=== PATIENT | male | born 1965 | race Caucasian/White ===

== ENCOUNTER 2021-07-27 13:09 | Emergency (ER) | payer BC, SELFPAY ==
[2021-07-27 14:53] VITALS: BP 119/62; PULSE 74; RESP 18; TEMP 36.4; O2SAT 95; BMI 25.0
--- NOTE | 2021-07-27 15:25 | HMH.EDUTC ---
[facility] [place] Disposition Clinical Impression: Sinusitis Qualifiers: Sinusitis location: unspecified location Chronicity: acute Recurrence: non-recurrent Qualified Code(s): J01.90 - Acute sinusitis, unspecified Disposition: Home, Self-Care Condition on Discharge: Good Instructions: Sinusitis, DI for Sinusitis Additional Instructions: Drink plenty of fluids. Take tylenol or ibuprofen for pain or fever. Take the medications as directed. Follow up with your regular doctor. GO TO THE ER FOR ANY WORSENING SYMPTOMS Don't start the oral steroids until tomorrow, since you had the shot here today. Prescriptions: Amoxicillin/Potassium Clav [Augmentin 875-125 Tablet] 1 tab PO Q12H 10 Days #20 tab Transmission Status: Received by [facility] methylPREDNISolone [Medrol] 4 mg PO DIRECTED 6 Days #21 packet Transmission Status: Received by [facility] guaiFENesin [Mucinex 600mg tablet] 1 - 2 tab PO BIDP PRN #30 tab PRN Reason: Congestion Transmission Status: Received by [facility] Referrals: Provider,Referral, [Primary Care Provider] - Time of Disposition: 16:28 Medical Decision Making - Medical Records Medical records reviewed: No: I reviewed the patient's medical records. - Justin Inquiry Pt receiving controlled substance: No Vital Signs: 07/27/21 14:53 07/27/21 16:39 Temperature 97.6 F 97.6 F Temperature Source Temporal Artery Scan Pulse Rate 74 Pulse Rate [Left] 74 Respiratory Rate 18 18 Blood Pressure 119/62 Blood Pressure [Right Arm] 119/62 Blood Pressure Mean [Right Arm] 81 02 Sat by Pulse Oximetry 95 Orders (Tests/Meds): ED MEDICATIONS Discontinued Medications Generic Name Dose Route Start Last Admin Trade Name Freq PRN Reason Stop Dose Admin Ceftriaxone Sodium 1 gm 07/27/21 15:43 07/27/21 16:01 Ceftriaxone 1gm Vial IM 07/27/21 15:44 1 gm ONCE ONE Administration Lidocaine HCl 0 ml 07/27/21 15:43 07/27/21 16:00 Lidocaine 1% 5ml Pf Vial IM 07/27/21 15:44 2 ml ONCE ONE Administration Methylprednisolone Sodium Succinate 125 mg 07/27/21 15:43 07/27/21 16:01 Methylprednisolone Sod Succ 125mg Vial IM 07/27/21 15:44 125 mg ONCE ONE Administration [facility] [place] HPI - General Stated complaint: headache, upper respiratory Time Seen by Provider: 07/27/21 15:25 Mode of Arrival: Ambulatory Source of Information: Patient Limitations: No Limitations Description of Symptoms (Recalled from Triage Doc. by RN): pt c/o a VALENCIA, green mucous and sputum, dizziness, sinus pain/pressure, and R eye pain. x2 MONTHS. HEENT Symptoms (Recalled from RN notes): Yes Resp Symptoms (Recalled from RN notes): Yes Skin Symptoms (Recalled from RN notes): No MS Symptoms (Recalled from RN notes): No Functional Status (Recalled from RN notes): wnl - History of Present Illness Provider Complaint: He states that for the past 2 months he has had a sinus infection. He has took multiple otc medications with no relief. - Related Data Previous Rx's Medication Instructions Recorded wufcankkskraaoj-keimgyitmzpvgyh-EO 10 ml PO Q4-6H PRN #200 ml 07/30/19 2 mg-30 mg-10 mg/5 mL oral syrup fluticasone propionate 50 1 spray INTRANASAL DAILY #15.8 ml 07/30/19 mcg/actuation nasal spray,suspension Amoxicillin/Potassium Clav 1 tab PO Q12H 10 Days #20 tab 07/27/21 [Augmentin 875-125 Tablet] guaiFENesin [Mucinex 600mg tablet] 1 - 2 tab PO BIDP PRN #30 tab 07/27/21 methylPREDNISolone [Medrol] 4 mg PO DIRECTED 6 Days #21 07/27/21 packet Allergies Allergy/AdvReac Type Severity Reaction Status Date / Time codeine Allergy Verified 07/27/21 14:56 - Worker's Comp Is this a Worker's Comp case?: No [facility] History - Hepatitis A Screen Drug use history?: No High risk sexual behaviors?: No History of sexually transmitted infection?: No Currently employed?: No Childcare worker?: No Do you have indoor plumbing?: Yes Do you have electricity?:
[2021-07-27 16:39] VITALS: BP 119/62; PULSE 74; RESP 18; TEMP 36.4
== END 2021-07-27 16:40 | disposition home or self-care (01) ==
PROVIDERS: Emergency Provider Nurse Practitioner Family
DX: J01.90 Acute sinusitis, unspecified (principal)
CPT/HCPCS: 96372; 99202; G0463; J0696

== ENCOUNTER 2023-03-20 14:36 | Emergency (ER) | payer BC, SELFPAY ==
[2023-03-20 14:38] VITALS: BP 138/74; PULSE 91; RESP 17; TEMP 36.7; O2SAT 97; BMI 24.4
--- NOTE | 2023-03-20 14:58 | XR_ITS ---
PROCEDURE INFORMATION: Exam: XR Left Forearm Exam date and time: 03/20/2023 3:05 PM Age: 57 years old Clinical indication: Injury or trauma; Other: Metal in arm; Puncture; Arm, lower; Left TECHNIQUE: Imaging protocol: Radiologic exam of the left forearm. Views: 2 views. COMPARISON: No relevant prior studies available. FINDINGS: Bones/joints: No acute fracture or dislocation. Soft tissues: 2 x 4.5 mm metallic foreign body in soft tissues of the radial/volar aspect of the mid forearm. IMPRESSION: 1. 2 x 4.5 mm metallic foreign body in soft tissues of the radial/volar aspect of the mid forearm. 2. No acute fracture or dislocation.
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
[2023-03-20 16:11] VITALS: BP 138/74; PULSE 91; RESP 17; TEMP 36.7; O2SAT 97
== END 2023-03-20 16:11 | disposition home or self-care (01) ==
PROVIDERS: Emergency Provider Nurse Practitioner
DX: S50.852A Superficial foreign body of left forearm, initial encounter (principal); F17.210 Nicotine dependence, cigarettes, uncomplicated; W45.8XXA Other foreign body or object entering through skin, initial encounter
CPT/HCPCS: 73090; 87070; 87205; 99212; 99214; G0463

== ENCOUNTER 2024-07-11 10:53 | Emergency (ER) | payer OTHER, SELFPAY ==
[2024-07-11 10:56] VITALS: BP 135/82; PULSE 99; RESP 20; TEMP 36.7; O2SAT 97; BMI 24.4
--- NOTE | 2024-07-11 11:07 | XR_ITS ---
PROCEDURE INFORMATION: Exam: XR Left Ankle Exam date and time: 07/11/2024 11:15 AM Age: 59 years old Clinical indication: Difficulty in walking; Additional info: Inversion injury TECHNIQUE: Imaging protocol: Radiologic exam of the left ankle. Views: 3 or more views. COMPARISON: CR XR FOOT LT MIN 3V 07/11/2024 11:15 AM FINDINGS: Bones/joints: No acute fracture or dislocation. Ankle mortise is intact. Small plantar calcaneal enthesophyte. Soft tissues: Soft tissue edema about the ankle. IMPRESSION: No acute osseous abnormality.
--- NOTE | 2024-07-11 11:07 | XR_ITS ---
PROCEDURE INFORMATION: Exam: XR Left Foot Exam date and time: 07/11/2024 11:15 AM Age: 59 years old Clinical indication: Difficulty in walking; Additional info: Inversion injury TECHNIQUE: Imaging protocol: Radiologic exam of the left foot. Views: 3 or more views. COMPARISON: CR XR ANKLE LT MIN 3V 07/11/2024 11:15 AM FINDINGS: Bones/joints: No acute fracture or dislocation. Joint spaces preserved. Small plantar calcaneal enthesophyte. Soft tissues: Unremarkable. IMPRESSION: No acute osseous abnormality.
[2024-07-11] MEDS: ACETAMINOPHEN 500MG TAB 1000 MG PO (11:19)
[2024-07-11] MEDS: IBUPROFEN 600 MG TABLET PO (11:19)
[2024-07-11 11:30] VITALS: BP 130/87; PULSE 88; O2SAT 96
--- NOTE | 2024-07-11 11:37 | ED_ITS ---
Discharge Plan Disposition Patient Disposition: Home, Self-Care Chief Complaint: Extremity Injury, Lower Prescriptions Prescriptions: No Action zuxczstggqcoetn-wdwmxliaw-TX [Bromfed DM] 2-30-10 mg/5 mL syrup 10 ml PO Q4-6H PRN (Reason: cold symptoms) Qty: 200 0RF fluticasone propionate [Flonase Allergy Relief] 50 mcg/actuation spray,suspension 1 spray INTRANASAL DAILY Qty: 15.8 2RF Rx Instructions: administer into each nostril methylprednisolone 4 MG tablets,dose pack 4 mg PO DIRECTED 6 Days Qty: 21 0RF amoxicillin-pot clavulanate 1 EACH tablet 1 tab PO Q12H 10 Days Qty: 20 0RF guaifenesin 600 MG tablet extended release 12hr 1 - 2 tab PO BIDP PRN (Reason: Congestion) Qty: 30 0RF clindamycin HCl 300 mg capsule 300 mg PO TID 10 Days Qty: 30 0RF Referrals Follow up/Referrals: WM Martin Ramirez MD [Primary Care Provider] - See instructions Foster Doss DO [Staff Physician] - See instructions Activity Restrictions/Add. Instructions Additional Instructions/Restrictions: At this time it was felt you are safe to be discharged home. If new or worsening symptoms please do not hesitate to return the emergency department. Please call and schedule appoint with Dr. Doss as soon as you are able if your symptoms persist longer than 5 days. For pain please take Tylenol and ibuprofen as needed is okay to take them both at the same time, please bear weight as tolerated with crutches. Clinical Impressions Clinical Impression: Left ankle sprain, Acute foot pain Print Language Print Language: Nicaraguan Discharge ED Provider: Ady Machuca General Adult [facility] General Chief complaint: Extremity Injury, Lower Stated complaint: AO 07/09/24, inj left foot/ankle Time Seen by Provider: 07/11/24 10:59 Mode of Arrival: Family Vehicle Source of Information: Patient, Spouse and Medical Record Limitations: No Limitations Description of Symptoms (Recalled from ER Triage Doc. by RN): Pt c/o pain and tenderness to left lateral sole to left foot. States on Friday (07/09), the ground he was walking on gave way and he slid down about 1 foot and his foot edwina the ground hard. He denies striking his head or any neck injury. He does report to tweaking his low back in the fall. He did take Aleve last night. History of Present Illness HPI narrative: Patient is a 59-year-old male with no pertinent past medical history presents emergency department for traumatic injury to his left ankle. Patient inadvertently stepped into a small syncopal and fell over causing an inversion injury with significant pain to his left ankle and foot. No other traumatic injuries. No other acute complaints at this time. No anticoagulants. Related Data Previous Rx's ?Medication ?Instructions ?Recorded fzxgcuddagtuhwr-uwefdclsvhftobv-YL 10 ml PO Q4-6H PRN cold symptoms 07/30/19 2 mg-30 mg-10 mg/5 mL oral syrup #200 mL (Bromfed DM) fluticasone propionate 50 1 spray intranasal DAILY #15.8 mL 07/30/19 mcg/actuation nasal spray,suspension (Flonase Allergy Relief) amoxicillin 875 mg-potassium 1 tab PO Q12H 10 days #20 tabs 07/27/21 clavulanate 125 mg tablet guaifenesin 600 mg tablet, 1 - 2 tab PO BIDP PRN Congestion 07/27/21 extended release 12 hr #30 tabs methylprednisolone 4 mg tablets in 4 mg PO DIRECTED 6 days #21 07/27/21 a dose pack packets clindamycin HCl 300 mg capsule 300 mg PO TID 10 days #30 caps 03/20/23 Allergies Allergy/AdvReac Type Severity Reaction Status Date / Time codeine Allergy Verified 03/25/23 09:09 [facility] Disclaimer: The information contained in this section may have been updated after the patient was seen, as this information can be updated by other users. Social History Smoking Status: Current every day smoker alcohol intake: current alcohol intake frequency: holidays/special occasions only current occupational status: employed Travel in the last 8 weeks: None housing: house Have you lived/traveled outside [place] in past 30 days?: No Contact w/someone who lives/traveled outside US past 30 days?: No Exposure to someone with infectious disease in past 14 days?: No Do you have a fever (greater than 100.4 F or 38 C)?: No Have you tested positive for COVID-19: No Exposed to someone with COVID-19 in past 14 days?: No Do you have a sore throat?: No Do you have a cough?: No Do you have any weakness?: No Do you have any diarrhea?: No Are you experiencing any unusual bleeding?: No Do you have any muscle aches/pain?: No Do you have any abdominal pain?: No Are you experiencing loss of taste or smell?: No Other Medical History Have you received the Pneumonia Vaccine: No ROS Obtained: Yes Systems reviewed as appropriate & no additional complaints except as documented Physical Exam General General appearance: alert and in no apparent distress Head Head exam: atraumatic and normocephalic Eye Eye exam: Present PERRL ENT ENT exam: Present mucous membranes moist Neck Neck exam: Present normal inspection Chest Chest inspection: Present normal inspection and symmetric chest wall rise Respiratory Respiratory exam: Present normal lung sounds bilaterally; Absent respiratory distress Cardiovascular Cardiovascular exam: Present regular rate and normal rhythm Abdominal Exam Abdominal exam: Present soft; Absent tenderness Extremities Exam Extremities exam: Present other (Bruising and tenderness along the lateral left malleolus on the lateral left foot. Distally neurovascularly intact left foot capillary refill preserved in all digits of the left foot. Palpable dorsal pedal pulse left foot.) Neurological Exam Neurological exam: Present alert Psychiatric Psychiatric exam: Present normal affect Skin Skin exam: Present warm and dry Medical Decision Making Medical Records Screening: Per USPSTF and CDC recommendations, given the prevalence of disease in our region, it is our hospital?s policy to screen for HIV and viral Hepatitis for all patients aged 18 and over and those with ongoing risk factors. Justin Inquiry Pt receiving controlled substance: No Vital Signs: 07/11/24 10:56 Temperature 98.0 F Temperature Source Oral Pulse Rate [Right] 99 H Respiratory Rate 20 Blood Pressure [Right Arm] 135/82 Blood Pressure Mean [Right Arm] 99 Blood Pressure Source [Right Arm] Automatic Cuff 02 Sat by Pulse Oximetry 97 Oxygen Delivery Method Room Air Orders (Tests/Meds): ED MEDICATIONS Discontinued Medications Generic Name Dose Route Start Last Admin Trade Name Freq PRN Reason Stop Dose Admin Acetaminophen 1,000 mg 07/11/24 11:07 07/11/24 11:19 Acetaminophen 500mg Tab PO 07/11/24 11:08 1,000 mg ONCE ONE Administration Ibuprofen 600 mg 07/11/24 11:07 07/11/24 11:19 Ibuprofen 600 Mg Tablet PO 07/11/24 11:08 600 mg ONCE ONE Administration ORDERS Category Date Time Status Ankle XR - Left minimum 3 Views [XR ankle LT min 3V] Exams 07/11/24 11:07 Completed Stat Foot XR left minimum 3 views [XR foot LT min 3V] Stat Exams 07/11/24 11:07 Completed Medical Decision Narrative: In summary patient is a 59-year-old male past medical history described above who presents to the emergency department for evaluation inversion injury to his left foot. Patient is hemodynamically stable nontoxic-appearing upon arrival. Differential includes musculoskeletal strain, muscle tear, fracture, dislocation, among others. Workup will be limited to plain film of the left foot and ankle. Additional hematologic labs and imaging was considered however based on history and physical will be deferred. Initial inventions include Tylenol and ibuprofen. X-rays informally interpreted by me, no acute significantly displaced fracture. Formal read shows no acute abnormality. Given this patient will be given crutches with instructions for weightbearing as tolerated will follow-up on an outpatient basis with orthopedics. Critical Care Critical Care Time Critical Care Time: No
--- NOTE | 2024-07-11 11:42 | PC.NURSE ---
ROUNDED ON THE PT. THE PT VOICES THAT HE DOES NOT NEED ANYTHING AT THIS TIME. CALL LIGHT IS WITHIN REACH OF THE PT. GIRLFRIEND IS PRESENT AT THE BEDSIDE.
[2024-07-11 11:52] VITALS: BP 128/82; PULSE 88; RESP 18; TEMP 36.7; O2SAT 98
== END 2024-07-11 11:53 | disposition home or self-care (01) ==
PROVIDERS: Emergency Provider Emergency Medicine; PCP Family Medicine
DX: S93.402A Sprain of unspecified ligament of left ankle, initial encounter (principal); M79.672 Pain in left foot; M25.572 Pain in left ankle and joints of left foot; Z72.0 Tobacco use; W19.XXXA Unspecified fall, initial encounter; Y93.9 Activity, unspecified
CPT/HCPCS: 73610; 73630; 99283

== ENCOUNTER 2024-11-23 16:59 | Emergency (ER) | payer OTHER, SELFPAY ==
[2024-11-23 17:42] VITALS: BP 118/60; PULSE 79; RESP 20; TEMP 36.8; O2SAT 96; BMI 24.4
--- NOTE | 2024-11-23 17:45 | XR_ITS ---
PROCEDURE INFORMATION: Exam: XR Right Elbow Exam date and time: 11/23/2024 6:54 PM Age: 59 years old Clinical indication: Injury or trauma; Fall; Blunt trauma (contusions or hematomas); Elbow; Right TECHNIQUE: Imaging protocol: Radiologic exam of the right elbow. Views: 3 or more views. COMPARISON: CR XR ELBOW RT MIN 3V 11/23/2024 6:54 PM FINDINGS: Bones/joints: Normal. No acute fracture identified. Soft tissues: Normal. IMPRESSION: No acute findings.
--- NOTE | 2024-11-23 17:45 | CT_ITS ---
PROCEDURE INFORMATION: Exam: CT Lumbar Spine Without Contrast Exam date and time: 11/23/2024 6:51 PM Age: 59 years old Clinical indication: Injury or trauma; Fall; Blunt trauma (contusions or hematomas) TECHNIQUE: Imaging protocol: Computed tomography of the lumbar spine without contrast. Radiation optimization: All CT scans at this facility use at least one of these dose optimization techniques: automated exposure control; mA and/or kV adjustment per patient size (includes targeted exams where dose is matched to clinical indication); or iterative reconstruction. COMPARISON: CT LUMBAR SPINE WO CON 11/23/2024 6:51 PM FINDINGS: Bones/joints: Anterior upper right sacral ala fracture redemonstrated. No other acute fracture. Normal alignment. No significant disc bulge or herniation. No severe spinal canal stenosis. No significant neural foraminal narrowing. Soft tissues: Unremarkable. IMPRESSION: 1. Anterior superior right sacral ala fracture. 2. No other acute lumbar spine fracture.
--- NOTE | 2024-11-23 17:45 | CT_ITS ---
PROCEDURE INFORMATION: Exam: CT Thoracic Spine Without Contrast Exam date and time: 11/23/2024 6:46 PM Age: 59 years old Clinical indication: Injury or trauma; Fall; Blunt trauma (contusions or hematomas) TECHNIQUE: Imaging protocol: Computed tomography of the thoracic spine without contrast. Radiation optimization: All CT scans at this facility use at least one of these dose optimization techniques: automated exposure control; mA and/or kV adjustment per patient size (includes targeted exams where dose is matched to clinical indication); or iterative reconstruction. COMPARISON: CT CHEST WO CON 11/23/2024 6:49 PM FINDINGS: Bones/joints: No acute fracture. Normal alignment. No significant disc bulge or herniation. No severe spinal canal stenosis. Mild degenerative changes. Soft tissues: Unremarkable. Esophagus: Small hiatal hernia. Possible abnormal thickening of the distal esophagus just proximal to the hiatal hernia. Patulous mildly distended fluid-filled esophagus. IMPRESSION: 1. No acute fracture. Mild degenerative changes. 2. Small hiatal hernia. Associated potential abnormal thickening of the distal esophagus just proximal to the hiatal hernia. This may be due to esophagitis but other process including the possibility of tumor can not be completely excluded. Further assessment with nonemergent endoscopy should be considered. Associated patulous fluid distended esophagus may be due to reflux or dysmotility.
--- NOTE | 2024-11-23 17:45 | XR_ITS ---
PROCEDURE INFORMATION: Exam: XR Right Shoulder Exam date and time: 11/23/2024 6:54 PM Age: 59 years old Clinical indication: Injury or trauma; Fall; Blunt trauma (contusions or hematomas); Shoulder; Right TECHNIQUE: Imaging protocol: Radiologic exam of the right shoulder. Views: 2 or more views. COMPARISON: CT CHEST WO CON 11/23/2024 6:49 PM FINDINGS: Bones/joints: Normal. No acute fracture identified. Soft tissues: Normal. IMPRESSION: No acute findings.
--- NOTE | 2024-11-23 17:45 | XR_ITS ---
PROCEDURE INFORMATION: Exam: XR Right Femur Exam date and time: 11/23/2024 6:54 PM Age: 59 years old Clinical indication: Injury or trauma; Fall; Blunt trauma; Thigh or upper leg; Right; Additional info: Pain after fall TECHNIQUE: Imaging protocol: Radiologic exam of the right femur. Views: 2 views. COMPARISON: CT BONY PELVIS 11/23/2024 6:53 PM FINDINGS: Bones/joints: Unremarkable. No acute fracture. Degenerative changes of the right hip. Soft tissues: Unremarkable. IMPRESSION: No acute findings.
--- NOTE | 2024-11-23 17:45 | CT_ITS ---
PROCEDURE INFORMATION: Exam: CT Pelvis Without Contrast, Skeleton Exam date and time: 11/23/2024 6:53 PM Age: 59 years old Clinical indication: Injury or trauma; Fall; Blunt trauma (contusions or hematomas); Bilateral; Pelvic region TECHNIQUE: Imaging protocol: Computed tomography of the pelvis without contrast. Exam focused on the skeleton. Radiation optimization: All CT scans at this facility use at least one of these dose optimization techniques: automated exposure control; mA and/or kV adjustment per patient size (includes targeted exams where dose is matched to clinical indication); or iterative reconstruction. COMPARISON: CT LUMBAR SPINE WO CON 11/23/2024 6:51 PM FINDINGS: Bones/joints: Nondisplaced fracture of the anterior superior right sacral ala that may extend into the right 1st sacral foramina. Nondisplaced comminuted fracture of the proximal right superior pubic ramus and nondisplaced fracture of the distal superior pubic ramus. Nondisplaced fracture of the mid right inferior pubic ramus. No other fracture identified. Awyb-wt-pmweqlky degenerative changes of the hips shext-cqklwtl-ocvk-left. Soft tissues: Unremarkable. IMPRESSION: Fractures of the right sacrum and the right superior and inferior pubic rami.
--- OUTSIDE RECORDS SUMMARY | 2024-11-23 17:50 | XMS_ITS | Clinical Summary ---
Author Organization [facility] Address [address] [place] [address] Phone Care Team Providers Care [facility] [employer] [facility] [facility] Miller Name Role Phone Unavailable Primary Care Provider Unavailabl e Allergies Active Allergy Reactions Criticality Noted Date Comments Codeine 06/12/2014 Medications No known medications Active Problems No known active problems Medical History Medical History Date Comments Neck fracture (HCC) Social History Tobacco Use Types Packs/Day Years Used Date Smoking Tobacco: Every Day Cigarettes Tobacco Cessation:Ready to Q uit: Yes; Counseling Given: Yes Alcohol Use Standard Drinks/Week Comments Yes 0 (1 standard drink = 0.6 oz pur e alcohol) occ Sex and Gender Information Value Date Recorded Sex Assigned at Not on file Legal Sex Male 6:08 PM EST Gender Identity Not on file Sexual Orientation Not on file Obstetrics History Last Filed Vital Signs Vital Sign Reading Time Taken Comments Blood Pressure 127/82 06/21/2014 2:14 PM EST Pulse 92 06/21/2014 2:14 PM EST Temperature 36.8 C (98.3 F) 06/12/2014 6:19 PM EST Respiratory Rate 16 06/12/2014 6:19 PM EST Oxygen Saturation 99% 06/12/2014 6:19 PM EST Inhaled Oxygen Concentration - - Weight 79.4 kg (175 lb) 06/21/2014 2:14 PM EST Height 180.3 cm (5' 11 ) 06/21/2014 2:14 PM EST Body Mass Index 24.41 06/21/2014 2:14 PM EST Plan of Treatment Upcoming Encounters Date Type Department Care Team (Late st Contact Info) Description 12/08/2024 1:45 PM EDT Office Visit [facility] [id number] [address] Tolu Aviles MD [address] [facility] [address] [place] [id number] Health Maintenance Due Date Last Done Comments Annual Wellness Exam 1969 DTaP/TDaP/Td (1 - Tdap) 1985 Hepatitis B Vaccine (1 of 3 - 19+ 3-dose series) 1985 Cologuard 2011 Colon Cancer Screening 2011 Colonoscopy 2011 FIT 2011 Sigmoidoscopy 2011 Virtual Colonography 2011 Zoster (1 of 2) 2016 Pneumococcal Vaccine 50+ (2 of 2 - PCV) 12/20/2021 12/20/2020 COVID-19 Vaccine ( - 2023-2 5 season) 2024 Influenza Vaccine (Season Ended) 2025 Meningococcal B Vaccine Aged Out No l onger eligible based on patient's age to complete this topic Insurance MEDICAID [facility] MEDICAID [facility] [employer] [facility]
--- OUTSIDE RECORDS SUMMARY | 2024-11-23 17:50 | XMS_ITS | Continuity of Care Document ---
Author Organization [facility] Address [address] [place] [address] Assessment No assessment recorded. Plan of Treatment Reminders Order Date Submit Date Provider Last Modified By Organization Details Last Modified Time Details Appointments None recorded. Lab None recorded. Referral orthopedic spine surgeon referral 2024 025 [facility], [address] , [place], [address], 5 07:45:07 Procedures None recorded. Surgeries None recorded. Imaging MRI, cervical spine, w/o contrast 2024 025 [facility], [address], [address], [place], [address], 12:59:09 Medication Orders baclofen 5 mg tablet 2024 025 [facility] [facility], [address] [place], [address], 5 05:02:05 Patient TargetsNo targets recorded. Patient Instructions Encounter Date Encounter Id Patient Instructions Last Modified By Organization Details Last Modified Time 09/27/2024 [id number] Call with change s RTC or ED if symptoms change or worsen Keep next interval checkup Cont. chronic meds as prescribed Chronic conditions are stable Discussed natural and expected course of this diagnosis and need to alert me if symptoms do not follow expected course or if any worsens edeatley Not available 09/27/2024 16:16:44 Reason for Referral Orthopedic Spine Surgeon Ref erral for Degeneration of cervical intervertebral disc Referring Physician: Suzanne Chavez, Family Medicine, Encounter Date: 09/27/2024 Results Created Date Observation Date Name Description Value Unit Range Abnormal Flag Note LastModifiedBy Organization Detail LastModifiedTime 09/14/19 25 09/13/2024 CT, cervi cory spine , w/o contr ast No observ ation record ed. [email or web address] [facility] ([facility]) [address], [place], [address], 09/16/2024 09:55:22 10/13/19 25 10/12/2024 XR, tibia + fibul a, 2 view No observ ation record ed. [email or web address] [facility] [address], [place], [address], 10/13/2024 09:20:53 10/16/19 25 10/12/2024 MRI, cervi cory spine , w/o contr ast No observ ation record ed. [email or web address] [facility] [address], [place], [address], 10/18/2024 10:26:03 Result Notes None recorded. Problems Name Problem SNOMED Code Status Onset Date Resolution Date Notes Provider Name and Address Organization Details Recorded Time Low back pain 335424515 Active 2022 Suzanne Chavez PA-C [address], [place], [address] , [place] - [facility] 3 08:16:54 Gastroesophag eal reflux disease 726801500 Active [facility], [place] - [facility] 7 16:32:51 Neck pain 22991882 Active 2024 Suzanne Chavez PA-C [address], [place], [address] , [place] - [facility] 5 16:18:10 Degeneration of cervical intervertebra l disc 76453106 Active 2024 Suzanne Chavez PA-C [address], [place], [address] , [facility] - [facility] 5 16:02:25 Pain in left knee Active Leyla padron, [place] - [facility] 7 15:42:47 Problem Notes None recorded. Medical Equipment None Reported. Allergies Allergen ID Allergen Name Allergen Category Reaction Reaction Severity Criticality Documentation Date Start Date Code Code System Note Provider Name and Address Organization Details Recorded Time 69030 codeine phosphate medicatio n Not available Not available Not available 03/08/20162009 2672 RxNorm Not Available [facility] 6 10:07:36 17668 codeine sulfate medicatio n Not available Not available Not available 03/08/20162009 93901 RxNorm Not Available [facility] 6 10:07:37 Medications Name Sig Start Date Stop Date Status Note LastModified by Organization Details LastModified Time amoxicill in 500 mg capsule TAKE ONE CAPSULE BY MOUTH THREE TIMES DAILY -- FINISH ALL MEDICINE -- 09/13 completed Not Available Not Available Not Available methocarb yusra 500 mg tablet Take 1 tablet 4 times a day by oral route as needed for 7 days. 11/01 completed Not Available Not Available Not Available clindamyc in HCl 300 mg capsule TAKE ONE CAPSULE BY MOUTH THREE TIMES DAILY FOR 10 DAYS -- FINISH ALL MEDICINE -- 06/26 completed Not Available Not Available Not Available etodolac 200 mg capsule TAKE ONE (1) CAPSULE TWICE A DAY BY ORAL ROUTE NEEDED FOR 14 DAYS. active Not Available Not Available No t Available ibuprofen 800 mg tablet TAKE 1 TABLET BY MOUTH EVERY 6 HOURS NEEDED FOR PAIN 12/20 completed Not Available Not Available Not Available ofloxacin 0.3 % eye drops instill 1 drop into left eye by ophthalm ic route every 4 hours for 2 days then 1 drop four times daily for 5 days 11/14 completed ofloxaci n 0.3 % ophthalm ic drops;Re corded Status: Recorded on: 07/05/19 11 3:18PM;D iscontin ued Status: Disconti nued on: 11/15/19 11 2:03PM;U ser: vesth Not Available Not Available Not Available Avelox 400 mg tablet take 1 tablet (400 mg) by oral route once daily for 10 days 11/14 completed Avelox 400 mg oral tablet;R ecorded Status: Recorded on: 07/24/19 11 1:16PM;D iscontin ued Status: Disconti nued on: 11/15/19 11 2:03PM;U ser: woodst;E st. Completi on: 08/04/19 11 Not Available Not Available Not Available Levaquin 750 mg tablet take 1 tablet (750 mg) by oral route once daily for 5 days 07/24 completed Levaquin 750 mg oral tablet;c omment: medicaid ;Recorde d Status: Recorded on: 07/24/19 11 1:10PM;D iscontin ued Status: Disconti nued on: 07/24/19 11 1:16PM;U ser: woodst;E st. Completi on: 07/29/19 11 Not Available Not Available Not Available Zithromax Z-Jamari 250 mg tablet take 2 tablets (500 mg) by oral route once daily for 1 day then 1 tablet (250 mg) by oral route once daily for 4 days 01/09 completed Zithroma x Z-Jamari 250 mg oral tablet;P rescribe Status: Prescrib ed on: 06/07/19 15 12:20PM; Disconti nued Status: Disconti nued on: 01/10/20 15 12:59PM; User: mitul;Yesy t. Completi on: 06/12/19 15;Pharm acyVsanta ied: 06/07/19 15 12:20PM Not Available Not Available Not Available naproxen 250 mg tablet TAKE 1 TABLET BY MOUTH TWICE DAILY 12/20 completed Not Available Not Available Not Available Minocin 100 mg capsule take 1 capsule (100 mg) by oral route 2 times per day for 10 days 08/20 completed Minocin 100 mg oral capsule; Recorded Status: Recorded on: 06/08/19 13 5:08PM;D iscontin ued Status: Disconti nued on: 08/21/19 13 4:35PM;U ser: jenny; Est. Completi on: 06/18/19 13;Print ed: 06/08/19 13 Not Available Not Available Not Available sulfameth oxazole 800 mg-trimet hoprim 160 mg tablet TAKE ONE TABLET BY MOUTH EVERY TWELVE HOURS FOR 7 DAYS -- FINISH ALL MEDICINE -- 06/26 completed Not Available Not Available Not Available omeprazol e 40 mg capsule,d elayed release 1 po qd 03/31 completed Not Available Not Available Not Available tramadol 50 mg tablet take 1 tablet (50 mg) by oral route every 4-6 hours as needed for 10 days 03/12 completed tramadol 50 mg oral tablet;R ecorded Status: Recorded on: 11/15/19 11 3:57PM;D iscontin ued Status: Disconti nued on: 03/12/20 12 4:19PM;U ser: [email or web address]; Est. Completi on: 11/25/19 11;Indic ation: Pain - ([id number]) Not Available Not Available Not Available Nexium 20 mg capsule,d elayed release take 1 capsule (20 mg) by oral route once daily at least 1 hour before a meal swallowi ng whole. Do not crush or chew granules . for 30 days 03/25 completed Nexium 20 mg oral capsule, delayed release( /ALCON);P rescribe Status: Prescrib ed on: 09/10/19 14 3:26PM;D iscontin ued Status: Disconti nued on: 03/25/20 14 4:31PM;U ser: gored;Es t. Completi on: 12/09/19 14;Pharm acyVerif ied: 09/10/19 14 3:26PM Not Available Not Available Not Available meloxicam 7.5 mg tablet Take 1 tablet twice a day by oral route. 03/31 completed Not Available Not Available Not Available Tessalon Perles 100 mg capsule take 1 capsule (100 mg) by oral route 3 times per day for 10 days 01/09 completed Tessalon Perles 100 mg oral capsule; Prescrib e Status: Prescrib ed on: 06/07/19 15 12:20PM; Disconti nued Status: Disconti nued on: 01/10/20 15 12:59PM; User: grayn;Es t. Completi on: 06/17/19 15;Indic ation: Cough - ([id number]);Phar Trupti fied: 06/07/19 15 12:20PM Not Available Not Available Not Available methocarb yusra 750 mg tablet TAKE 1 TABLET BY MOUTH THREE TIMES DAILY NEEDED 09/27 completed Not Available Not Available Not Available cephalexi n 500 mg capsule TAKE 1 CAPSULE BY MOUTH EVERY 8 HOURS UNTIL GONE 12/12 completed Not Available Not Available Not Available Cipro 500 mg tablet take 1 tablet (500 mg) by oral route 2 times per day for 10 days 03/25 completed Cipro 500 mg oral tablet;P rescribe Status: Prescrib ed on: 09/10/19 14 3:26PM;D iscontin ued Status: Disconti nued on: 03/25/20 14 4:31PM;U ser: jarrod;Es t. Completi on: 09/20/19 14;Pharm acDeangelo ied: 09/10/19 14 3:26PM Not Available Not Available Not Available Tonja-D 12 Hour 60 mg-120 mg tablet,ex tended release take 1 tablet by oral route 2 times per day for 7 days 09/09 completed Tonja- D 12 Hour 60-120 mg oral tablet extended release 12 hr;Recor ded Status: Recorded on: 08/21/19 13 5:04PM;D iscontin ued Status: Disconti nued on: 09/10/19 14 3:09PM;U ser: jorge; Est. Completi on: 08/28/19 13;Print ed: 08/21/19 13 Not Available Not Available Not Available clobetaso l 0.05 % topical ointment APPLY A THIN LAYER TO THE AFFECTED AREA(S) BY TOPICAL ROUTE TWO (2) TIMES PER DAY 09/13 completed Not Available Not Available Not Available methylpre dnisolone 4 mg tablets in a dose pack TAKE ACCORDIN G TO PACKAGE INSTRUCT IONS --TAKE WITH FOOD-- -- FINISH ALL MEDICINE -- 09/13 completed Not Available Not Available Not Available cefdinir 300 mg capsule take 1 capsule (300 mg) by oral route every 12 hours for 10 days 02/03 completed cefdinir 300 mg oral capsule; Prescrib e Status: Prescrib ed on: 01/25/20 16 8:57AM;U ser: allisons ;Est. Dreai on: 02/04/20 16;Pharm acyVerif ied: 01/25/20 16 8:57AM Not Available Not Available Not Available Zovirax 5 % topical ointment apply to the affected area(s) by topical route every 3 hours 6 times per day for 7 days 07/05 completed Zovirax 5 % topical ointment ;Recorde d Status: Recorded on: 04/05/20 10 3:14PM;D iscontin ued Status: Disconti nued on: 07/05/19 11 8:17AM;U ser: gorclaudio;Yesy Zelaya on: 04/12/20 10;Print ed: 04/05/20 10 Not Available Not Available Not Available fluticaso ne propionat e 50 mcg/actua tion nasal spray,nasir pension inhale 1 spray (50 mcg) in each nostril by intranas al route once daily for 14 days 03/31 completed fluticas one 50 mcg/actu ation nasal spray,cody spension ;Prescri be Status: Prescrib ed on: 01/04/20 16 3:56PM;D iscontin ued Status: Disconti nued on: 01/25/20 16 8:32AM;U ser: allisons ;Est. Completi on: 01/18/20 16;Pharm acyVerif ied: 01/04/20 16 3:56PM Not Available Not Available Not Available naproxen 500 mg tablet TAKE 1 TABLET BY MOUTH TWICE DAILY 10/18 completed Not Available Not Available Not Available amoxicill in 875 mg-potass ium clavulana te 125 mg tablet take 1 tablet by oral route every 12 hours for 10 days 12/20 completed Not Available Not Available Not Available Ventolin HFA 90 mcg/actua tion aerosol inhaler inhale 1 puff (90 mcg) by inhalati on route every 6 hours as needed for 30 days 03/31 completed Not Available Not Available Not Available buprenorp giovani 8 mg-naloxo ne 2 mg sublingua l tablet DISSOLVE 2 TABLETS UNDER THE TONGUE EVERY DAY active Not Available Not Available No t Available lactulose 10 gram/15 mL oral solution take 15-30 ML BY MOUTH EVERY DAY NEEDED FOR constipa tion 09/13 completed Not Available Not Available Not Available metronida zole 1 % topical gel APPLY TO THE AFFECTED AREA(S) BY TOPICAL ROUTE ONCE DAILY ; RUB IN GENTLY AND COMPLETE LY 12/20 completed Not Available Not Available Not Available Zithromax one daily 08/20 completed zithroma x 250 mg.;Aristeo rded Status: Recorded on: 07/21/19 13 9:17PM;D iscontin ued Status: Disconti nued on: 08/21/19 13 4:35PM;U ser: jie Zelaya on: 07/30/19 13;Indic ation: sinus - (-5) Not Available Not Available Not Available tramadol one q 4 hrs prn pain 06/07 completed tramadol 50 mg.;Aristeo rded Status: Recorded on: 03/28/20 14 8:08PM;D iscontin ued Status: Disconti nued on: 06/07/19 15 11:41AM; User: jie EstJosselyn Completkennedy on: 04/02/20 14;Indic ation: pain - (-5) Not Available Not Available Not Available Keflex one tid 06/07 completed keflex 500 mg.;Aristeo rded Status: Recorded on: 03/28/20 14 8:08PM;D iscontin ued Status: Disconti nued on: 06/07/19 15 11:41AM; User: jie EstJosselyn Completkennedy on: 04/07/20 14;Indic ation: infectio n - (-5) Not Available Not Available Not Available Lomotil one q 4 hrs. prn 06/08 completed lomotil 25 mg.;Aristeo rded Status: Recorded on: 05/14/20 12 2:27PM;D iscontin ued Status: Disconti nued on: 06/08/19 13 4:10PM;U ser: jorge; Est. Completi on: 05/19/20 12;Indic ation: diarr - (-5) Not Available Not Available Not Available Minocin one bid 08/20 completed minocin 100 mg.;Aristeo rded Status: Recorded on: 06/08/19 13 8:28PM;D iscontin ued Status: Disconti nued on: 08/21/19 13 4:35PM;U ser: jorge; Est. Completi on: 06/18/19 13;Indic ation: sinus - (-5) Not Available Not Available Not Available promethaz ine one q 4 hrs prn nand v 06/08 completed phenerga n tAB 25 mg.;Aristeo rded Status: Recorded on: 05/14/20 12 2:27PM;D iscontin ued Status: Disconti nued on: 06/08/19 13 4:10PM;U ser: jorge; Est. Completi on: 05/19/20 12;Indic ation: neasua - (-5) Not Available Not Available Not Available Parafon Forte DSC one qid 09/09 completed Parafon dsc 500 mg.;Aristeo rded Status: Recorded on: 09/09/19 13 9:50PM;D iscontin ued Status: Disconti nued on: 09/10/19 14 3:09PM;U ser: jorge; Est. Completi on: 09/16/19 13;Indic ation: back - (-5) Not Available Not Available Not Available Mobic one bid 09/09 completed mobic 7.5 mg;Recor ded Status: Recorded on: 09/09/19 13 9:50PM;D iscontin ued Status: Disconti nued on: 09/10/19 14 3:09PM;U ser: jorge; Est. Completi on: 09/19/19 13;Indic ation: pain - (-5) Not Available Not Available Not Available Ultracet one q 4 hrs prn pain 08/20 completed ultracet 37.5 mg;Recor ded Status: Recorded on: 06/08/19 13 8:28PM;D iscontin ued Status: Disconti nued on: 08/21/19 13 4:35PM;U ser: jorge; Est. Completi on: 06/13/19 13;Indic ation: h/a - (-5) Not Available Not Available Not Available Doxycycli ne one bid 06/08 completed doxycycl ine 100 mg.;Aristeo rded Status: Recorded on: 03/12/20 12 4:55PM;D iscontin ued Status: Disconti nued on: 06/08/19 13 4:10PM;U ser: jorge; Est. Completi on: 03/22/20 12;Indic ation: uri - (-5) Not Available Not Available Not Available Lodrane 24 D 12 mg-90 mg capsule,e xtended release take 1-2 capsule( s) by oral route once daily 11/14 completed Lodrane 24 D 12-90 mg oral capsule, extended release 24hr;Rec orded Status: Recorded on: 07/05/19 11 3:46PM;D iscontin ued Status: Disconti nued on: 11/15/19 11 2:03PM;U ser: itzel Est. Completi on: 07/15/19 11 Not Available Not Available Not Available Tonja-D one bid 08/20 completed allerga d 12 hr.;Aristeo rded Status: Recorded on: 07/21/19 13 9:17PM;D iscontin ued Status: Disconti nued on: 08/21/19 13 4:35PM;U ser: jorge; Est. Completi on: 08/01/19 13;Indic ation: sinus - (-5) Not Available Not Available Not Available baclofen 5 mg tablet Take 1 tablet twice a day by oral route as needed for 10 days. 10/14 completed Not Available Not Available Not Available Vitals Date Recorded Respiratory rate Body weight Body temperature Heart rate Oxygen saturation Oxygen saturation in Arterial blood by Pulse oximetry Systolic blood pressure Diastolic blood pressure Provider Name and Address Organization Details Last Updated DateTime 14 /min 92798.1 5 g 98.2 [degF] 86 /min 98 % 98 % 118 mm[Hg] 84 mm[Hg] Susan Marte [place] - [facility] 5 15:29:34 Social History Question Answer Notes LastModified by Organizat ion Details LastModified Time Tobacco Smoking Status Current Every Day Smoker Nacho padron [place] - [facility] 03/28/2016 08:49:15 Able To Swim? Yes Information not available 08/21/2016 Do You Have An Advance Directive? No Information n ot available 08/21/2016 Are You Blind Or Do You Have Difficulty Seeing? No Information n ot available 08/21/2016 What Is Your Level Of Caffeine Consumption? Moderate Information not available 08/21/2016 In The 14 Days Before Symptom Onset, Have You Had Close Contact With A Laboratory-confirm ed COVID-19 While That Case Was Ill? No [email or web address] Information n ot available 12/20/2022 In The 14 Days Before Symptom Onset, Have You Had Close Contact With A Person Who Is Under Investigation For COVID-19 While That Person Was Ill? No [email or web address] Information not available 12/20/2022 Have You Been To An Area Known To Be High Risk For COVID-19? No [email or web address] Information not available 12/20/2022 Are You Deaf Or Do You Have Serious Difficulty Hearing? No Information not available 08/21/2016 What Type Of Diet Are You Following? REGULAR Information n ot available 08/21/2016 Have You Processed Blood Or Body Fluids From An Ebola Virus Disease Patient Without Appropriate PPE? No [email or web address] Information not available 12/20/2022 Do You Reside In Or Have You Traveled To An Area Where Ebola Virus Transmission Is Active? No Information not available 12/20/2022 Swimming/diving Yes Informati on not available 08/21/2016 Hard Of Hearing Or Deaf In One Or Both Ears? No Information not available 08/21/2016 Have You Recently Or Are You Planning To Travel To An Area With Zika Virus? No [email or web address] Information not available 12/20/2022 Legally Blind In One Or Both Eyes? No Information no t available 08/21/2016 Live Alone Or With Others? With Others Information not available 08/21/2016 What Was The Date Of Your Most Recent Tobacco Screening? 09/27/2024 [email or web address] Information not available 09/27/2024 How Many Children Do You Have? 1 Information not available 08/21/2016 What Is Your Current Pack Years? 30ormorepacky ears [email or web address] Information not available 12/20/2022 What Is Your Relationship Status? Single Information not available 08/21/2016 Seat Belts Used Routinely Yes Information not available 08/21/2016 Smoke Alarm In Home Yes Information not available 08/21/2016 At What Age Did You Start Smoking Tobacco? 18 [email or web address] Information not available 12/20/2022 Are You Passively Exposed To Smoke? Yes Information no t available 08/21/2016 How Much Tobacco Do You Smoke? 1 PPD [email or web address] Information not available 03/28/2016 General Stress Level High Information not available 08/21/2016 Has Tobacco Cessation Counseling Been Provided? Yes [email or web address] Information not available 12/20/2022 On What Date Was Tobacco Cessation Counseling Provided? 09/27/2024 [email or web address] Information not available 09/27/2024 How Many Years Have You Smoked Tobacco? 30 [email or web address] Information not available 12/20/2022 Do You Have Difficulty Walking Or Climbing Stairs? No Information not available 08/21/2016 Sex: Male Functional Status Question Answer Note LastModified by Organizat ion Details LastModified Time How many times per week do you consume alcohol? Less than 1 time per week [email or web address] Information not available 12/20/2022 Do you use any illicit or recreational drugs? No [email or web address] Information not available 12/20/2022 Do you or have you ever used any other forms of tobacco or nicotine? No [email or web address] Information not available 12/20/2022 What is your level of alcohol consumption? Moderate Information not available 08/21/2016 Are you currently employed? No Information not available 08/21/2016 Are you able to walk? [email or web address] Information not available 08/21/2016 Do you have difficulty doing errands alone? No Information not available 08/21/2016 Are you able to care for yourself? Yes Information not available 08/21/2016 Do you have difficulty dressing or bathing? No Information not available 08/21/2016 What is your exercise level? Moderate Information not available 08/21/2016 Mental Status Question Answer Note LastModified by Organization D etails LastModified Time Do you have difficulty concentrating, remembering or making decisions? No Information no t available 08/21/2016 Family History Relationship Description Onset Age of this Age Resolved Age Notes LastModified by Organization Details LastModified Time Maternal Grandmother Family history of malignant neoplasm Not available 2016 16:33:29 Paternal Grandmother Family history of malignant neoplasm Not available 2016 16:33:29 Maternal Grandfather Family history of malignant neoplasm Not available 2016 16:33:29 Medical History Condition Response Pancreatitis N Coronary Artery Disease N Other N Gout N Atrial Fibrillation N congenital heart disease N Blood Diseases N Kidney Stones N Hyperthyroidism N Blood Transfusion N Rheumatoid arthritis N Erectile Dysfunction N amputation N Colonoscopy N Skin Lesions N COPD N Depression N Pneumonia N Incontinence N Murmur N Edema N Alzheimer's Disease N Migraine Headaches N Tobacco Abuse N Anxiety Disorder N Hemorrhoids N Muscle, Joint, or Bone Problems N Obesity N Vision or Eye Problems N Arthritis N Restless Leg Syndrome N Polyps N Infertility N Mental Disorder N Carpal Tunnel N Acid Reflux (GERD) Y Cancer N Varicosities N Stroke N Tendonitis N Crohn's Disease N Hypercholesterolemia N Skin Cancer N Headaches N Fibromyalgia N Anal Fissure N Irritable Bowel Syndrome N Kidney Disease N Heart Problems N Ear or Hearing Problems N Hospitalizations N Gallstones N Kidney or Bladder Problems N Goiter N Acne N Skin Problems N Eating Disorder N Nguyen's Esophagus N Hypertriglyceridemia N MRSA exposure N Constipation N Embolism N Vitamin B12 Deficiency N Deviated Septum N Tuberculosis N AIDS/HIV N Myocardial Infarction N Asthma N Mitral Valve Disorders N Vertigo N Hepatitis N Thyroid Cancer N Neuropathy N Pulmonary Embolism N History of DVT N Herniated Disc N Chronic Ear Infections N Chicken Pox N Autism Spectrum Disorder (ASD) N Von Willebrands Disease N Thrombophilias N Breast Cancer N Hernia N Plantar Fasciitis N Hospital Admission Other Than N Lung Disease N Hypothyroidism N Defects or Inherited Disease N Developmental or Behavioral Disorders N Breast Problem N Difficulty Swallowing N Ovarian Cyst N Anesthesia Complications N Testosterone Deficiency N Meniere's disease N Head Injury/Concussion N Interstitial Cystitis N Congenital Anomalies N Hypoglycemia N Blood clot N Vitamin D Deficiency N Cellulitis N Endometriosis N Fracture N Bladder or Kidney Problems N Liver Disease N Panic Disorder N Schizophrenia N Concussion N Spina Bifida N Allergies/Hayfever N Osteoarthritis N Parkinson's Disease N Disc Protrusion N STI N Esophagitis N Angina N Thyroid Problems N GI Problems N ADD/ADHD N Anemia N Multiple Sclerosis N Abnormal PAP N Lumbago N Mental Illness N Psychiatric Illness N Diabetes N Ovarian Cancer N Bedwetting N Degenerative Disc Disease N Seizures/Epilepsy N Congestive Heart Failure (CHF) N Hyperlipidemia N Syncope N Insomnia N Eczema N Abuse/Domestic Violence N Attention Deficient Disorder N Diverticulitis N Dementia N Ulcerative colitis N Cerebrovascular Disease N Depression N Guillain-[place] N Sleep Apnea N Aneurysm N Bronchitis N Heart Disease N Suicidal Ideation N Pre-Eclampsia N Hypertension N Osteoporosis N Immunizations Vaccine Type Date Status Note Provider Nam e and Address Organization Details Recorded Time pneumococcal polysaccharide PPV23 completed Billie Reina [facility] [place] [facility] 12/20/2020 17:05:38 Past Encounters Encounter ID Performer Location Encounter Start Date Encounter Closed Date Diagnosis/Indication Diagnosis SNOMED-CT Code Diagnosis ICD10 Code Diagnosis Note [id number] TAYLER Morrow [address] [address] 09/13/2024 15:50:47 09/13/2024 16:24:45 Neck pain 64578853 M54.[address] or stat outpatient at ER. Recommend that pt go to ER for further evaluation and r/o c spine injury. Pt agreed. Pt refused ambulance transport, I discussed calling to get him in a brace and transport from [facility] but pt refused and his would drive him. Called and gave report to ER, He was going to go to [facility] [id number] TAYLER Morrow [facility] [address] [place] [address] 09/27/2024 15:18:04 09/27/2024 16:12:19 Neck pain 74352420 M54.2 on goingwill try different muscle relaxer, cont naproxen Degenerati on of cervical intervertebral disc 12212915 M50.30 -Noted on CT Health Concerns Section Related Observation LastModified by Organization Detai ls LastModified Time None Recorded Concern Status LastModified by Organization Details LastModified

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
--- OUTSIDE RECORDS SUMMARY | 2024-11-23 17:50 | XMS_ITS | Data Portability ---
Author Organization [facility] Address [address] [place] [address] Assessment No assessment recorded. Plan of Treatment Reminders Order Date Submit Date Provider Last Modified By Organization Details Last Modified Time Details Appointments None recorded. Lab vitamin D, 25-hydroxy , total, serum 2023 024 [facility], [address] [place], [address], 4 14:12:43 TSH + free T4, serum 2023 024 [facility], [address] [place], [address], 4 14:12:40 rf (rheumatoi d factor), serum 2023 024 CHANDU [facility], [address], [address], [place], [address], 4 14:12:42 roz-ba rr virus (ebv) IgG + IgM panel, serum 2023 024 [facility]U [facility], [address], [address], [place], [address], 4 14:12:42 ROOSEVELT (antinucle ar antibodies ) screen, serum 2023 024 [facility], [address], [address], [place], [address], 4 14:12:45 sjogren antibody panel (ssa, ssb, ro, la), serum 2023 024 [facility]U [facility], [address], [address], [place], [address], 4 14:12:41 ESR (erythrocy te sedimentat ion rate), blood 2023 024 CH[facility]U [facility], [address], [address], [place], [address], 4 14:12:46 hepatic function panel, serum 2023 024 [facility], [address], [address], [place], [address], 4 14:12:40 uric acid, serum or plasma 2023 024 [facility], [address], [address], [place], [address], 4 14:12:45 ASO (antistrep tolysin O) Ab, quantitati ve, serum 2023 024 [facility], [address], [address], [place], [address], 4 14:12:46 C reactive protein, QN, serum or plasma 2023 024 [facility]U [facility], [address], [address], [place], [address], 4 14:12:47 ccp (cyclic citrullina davon peptide) iga+igg, serum 2023 024 [facility], [address], [address], [place], [address], 4 14:12:44 actin smooth muscle IgG Ab, quant, serum 2023 024 [facility], [address], [address], [place], [address], 4 14:12:43 dsDNA Ab, serum 2023 024 [facility], [address], [address], [place], [address], 4 14:12:44 HbA1c (hemoglobi n A1c), blood 2023 024 [facility], [address] [place] [address], [address], 4 08:22:07 vitamin B12 + folate, serum or blood 2023 024 [facility], [address] [place] [address], [address], 4 08:22:06 CBC w/ auto diff 2023 024 [facility], [address] [place] [address], [address], 4 08:22:05 glucose, fingerstic k, blood 2023 024 [facility], [address] [facility], [place], [address], 4 16:29:01 CMP, serum or plasma [address], [address], 4 08:22:06 inflammati on panel, serum or plasma [address], [address], 4 08:22:07 Referral orthopedic spine surgeon referral 2024 025 [email or web address], [address], [place], [address], 5 07:45:07 general surgeon referral 2023 024 [email or web address] John Tai MD, [address] [facility] , [address], [place], [address], 4 08:02:23 ophthalmol ogist referral 2023 024 lee ann Linares MD, [address] [place], [address], 4 10:29:16 orthopedic surgeon referral 2022 023 [email or web address], [address], [place], [address], 4 09:22:14 dermatolog ist referral [address] [facility] [place], [address], [address], [place], [address], 3 11:24:56 Procedures None recorded. Surgeries None recorded. Imaging MRI, cervical spine, w/o contrast 2024 025 [facility], [address] [facility], [address], [place], [address], 5 12:59:09 XR, chest, 2 view 2023 024 [facility], [address] [place] [address] , [place], [address], 4 08:16:16 XR, ribs, unilateral - right 2022 023 CHANDU [facility] ([facility]), [address], [place], [address], 3 13:49:32 XR, knee, 3 view 2022 023 CHANDU Not available 3 13:49:45 XR, thoracic spine, 2 view 2022 023 [facility] [address] [place] [address], [place], [address], 3 13:49:38 Medication Orders baclofen 5 mg tablet [address], [address], 5 05:02:05 clobetasol 0.05 % topical ointment 2023 [email or web address], [address], 5 16:07:06 baclofen 5 mg tablet 2022 023 [facility], [address] [place] [address], [address], 5 05:02:05 etodolac 200 mg capsule 2022 [email or web address], [address], 5 10:25:32 Patient TargetsNo targets recorded. Patient Instructions Encounter Date Encounter Id Patient Instructions Last Modified By Organization Details Last Modified Time 12/20/2022 [id number] healthy upper back: exercises Not available 12/20/2022 11:03:24 skin lesions: care instructions Not available 12/20/2022 11:03:24 CALL W CHANGES RTC OR ED IF SYMPTOMS CHANGE OR WORSEN KEEP NEXT INTERVAL CHECKUP Not available 12/20/2022 11:02:00 06/26/2023 [id number] CALL W CHANGES RTC OR ED IF SYMPTOMS CHANGE OR WORSEN KEEP NEXT INTERVAL CHECKUP DISCUSSED NATURAL AND EXPECTED COURSE OF THIS DIAGNOSIS AND NEED TO ALERT ME IF SYMPTOMS DO NOT FOLLOW EXPECTED COURSE, OR IF ANY WORSEN. [email or web address] Not available 06/26/2023 16:25:00 fu w eb, ed or a a in one week to review results. consider hep c and hiv workup. consider hyperalgesia of opiates. auto inflammatory issues remain in the differential wdenham Not available 06/26/2023 16:30:38 07/14/2023 [id number] CALL W CHANGES RTC OR ED IF SYMPTOMS CHANGE OR WORSEN KEEP NEXT INTERVAL CHECKUP CONT CHRONIC MEDS PERSCRIBED CHRONIC ISSUES ARE STABLE DISCUSSED NATURAL AND EXPECTED COURSE OF THIS DIAGNOSIS AND NEED TO ALERT ME IF SYMPTOMS DO NOT FOLLOW EXPECTED COURSE, OR IF ANY WORSEN follow up after labs are revd. [email or web address] Not available 07/14/2023 15:31:47 09/13/2024 [id number] Call with change s RTC or ED if symptoms change or worsen Keep next interval checkup Cont. chronic meds as prescribed Chronic conditions are stable Discussed natural and expected course of this diagnosis and need to alert me if symptoms do not follow expected course or if any worsens edeatley Not available 09/13/2024 16:35:53 09/27/2024 [id number] Call with change s RTC or ED if symptoms change or worsen Keep next interval checkup Cont. 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 Referring Physician: uSzanne Daugherty [facility], Encounter Date: 12/20/2022 Orthopedic Surgeon Referral for Pain of left knee joint Referring Physician: Suzanne Daugherty [facility], Encounter Date: 12/20/2022 Warehouse Inventory Clerk Referral for Disorder of vision Referring Physician: [facility], Encounter Date: 06/26/2023 General Surgeon Referral for Skin lesion Referring Physician: Iain Momin [facility], Encounter Date: 07/14/2023 Orthopedic Spine Surgeon Ref erral for Degeneration of cervical intervertebral disc Referring Physician: Suzanne Chavez [facility], Encounter Date: 09/27/2024 Results Created Date Observation Date Name Description Value Unit Range Abnormal Flag Note LastModifiedBy Organization Detail LastModifiedTime 06/26/19 24 06/27/2023 CBC WITH DIFFE RENTI AL/PL ATELE T WBC 8.7 x10e3 /uL 3.4-10 .8 Not Available [facility] ([facility]) [address] [facility], [place], [address], 06/27/2023 08:22:05 06/26/19 24 06/27/2023 CBC WITH DIFFE RENTI AL/PL ATELE T RBC 4.79 x10e6 /uL 4.14-5 .80 Not Available [facility] ([facility]) [address] [facility], [place], [address], 06/27/2023 08:22:05 06/26/19 24 06/27/2023 CBC WITH DIFFE RENTI AL/PL ATELE T hemoglobin 13.3 g/dL 13.0-1 7.7 Not Available [facility] ([facility]) [address] [facility], [place], [address], 06/27/2023 08:22:05 06/26/19 24 06/27/2023 CBC WITH DIFFE RENTI AL/PL ATELE T hematocrit 39.4 % 37.5-5 1.0 Not Available [facility] ([facility]) [address] [facility], [place], [address], 06/27/2023 08:22:05 06/26/19 24 06/27/2023 CBC WITH DIFFE RENTI AL/PL ATELE T MCV 82 fL 79-97 Not Available [facility] ([facility]) [address] [place], [address], 06/27/2023 08:22:05 06/26/19 24 06/27/2023 CBC WITH DIFFE RENTI AL/PL ATELE T MCH 27.8 pg 26.6-3 3.0 Not Available [facility] ([facility]) [address] [place], [address], 06/27/2023 08:22:05 06/26/19 24 06/27/2023 CBC WITH DIFFE RENTI AL/PL ATELE T MCHC 33.8 g/dL 31.5-3 5.7 Not Available [facility] ([facility]) [address] [facility], [place], [address], 06/27/2023 08:22:05 06/26/19 24 06/27/2023 CBC WITH DIFFE RENTI AL/PL ATELE T RDW 13.4 % 11.6-1 5.4 Not Available [facility] ([facility]) [address] [facility], [place], [address], 06/27/2023 08:22:05 06/26/19 24 06/27/2023 CBC WITH DIFFE RENTI AL/PL ATELE T platelets 283 x10e3 /uL 150-45 0 Not Available [facility] ([facility]) [address] [facility], [place], [address], 06/27/2023 08:22:05 06/26/19 24 06/27/2023 CBC WITH DIFFE RENTI AL/PL ATELE T neutrophils 72 % not estab. Not Available [facility] ([facility]) [address] [facility], [place], [address], 06/27/2023 08:22:05 06/26/19 24 06/27/2023 CBC WITH DIFFE RENTI AL/PL ATELE T lymphs 22 % not estab. Not Available [facility] ([facility]) [address] [facility], [place], [address], 06/27/2023 08:22:05 06/26/19 24 06/27/2023 CBC WITH DIFFE RENTI AL/PL ATELE T monocytes 4 % not estab. Not Available [facility] ([facility]) [address] [facility], [place], [address], 06/27/2023 08:22:05 06/26/19 24 06/27/2023 CBC WITH DIFFE RENTI AL/PL ATELE T eos 2 % not estab. Not Available [facility] ([facility]) [address] [place], [address], 06/27/2023 08:22:05 06/26/19 24 06/27/2023 CBC WITH DIFFE RENTI AL/PL ATELE T basos 0 % not estab. Not Available [facility] ([facility]) [address] [facility], [place], [address], 06/27/2023 08:22:05 06/26/19 24 06/27/2023 CBC WITH DIFFE RENTI AL/PL ATELE T immature cells PICKER PACKER Not Available [facility] ([facility]) [address] [place], [address], 06/27/2023 08:22:05 06/26/19 24 06/27/2023 CBC WITH DIFFE RENTI AL/PL ATELE T neutrophils (absolute) 6.2 x10e3 /uL 1.4-7. 0 Not Available [facility] ([facility]) [address] [place], [address], 06/27/2023 08:22:05 06/26/19 24 06/27/2023 CBC WITH DIFFE RENTI AL/PL ATELE T lymphs (absolute) 1.9 x10e3 /uL 0.7-3. 1 Not Available [facility] ([facility]) [address] [place], [address], 06/27/2023 08:22:05 06/26/19 24 06/27/2023 CBC WITH DIFFE RENTI AL/PL ATELE T monocytes(ab solute) 0.4 x10e3 /uL 0.1-0. 9 Not Available [facility] ([facility]) [address] [place], [address], 06/27/2023 08:22:05 06/26/19 24 06/27/2023 CBC WITH DIFFE RENTI AL/PL ATELE T eos (absolute) 0.2 x10e3 /uL 0.0-0. 4 Not Available [facility] ([facility]) [address] [facility], [place], [address], 06/27/2023 08:22:05 06/26/19 24 06/27/2023 CBC WITH DIFFE RENTI AL/PL ATELE T baso (absolute) 0.0 x10e3 /uL 0.0-0. 2 Not Available [facility] ([facility]) [address] [facility], [place], [address], 06/27/2023 08:22:05 06/26/19 24 06/27/2023 CBC WITH DIFFE RENTI AL/PL ATELE T immature granulocytes 0 % not estab. Not Available [facility] ([facility]) [address] [facility], [place], [address], 06/27/2023 08:22:05 06/26/19 24 06/27/2023 CBC WITH DIFFE RENTI AL/PL ATELE T immature grans (abs) 0.0 x10e3 /uL 0.0-0. 1 Not Available [facility] ([facility]) [address] [facility], [place], [address], 06/27/2023 08:22:05 06/26/19 24 06/27/2023 CBC WITH DIFFE RENTI AL/PL ATELE T NRBC PICKER PACKER Not Available [facility] ([facility]) [address] [facility], [place], [address], 06/27/2023 08:22:05 06/26/19 24 06/27/2023 CBC WITH DIFFE RENTI AL/PL ATELE T hematology comments: PICKER PACKER Not Available [facility] ([facility]) [address] [facility], [place], [address], 06/27/2023 08:22:05 06/26/19 24 06/27/2023 COMP. METAB OLIC PANEL (14) glucose 107 mg/dL 70-99 above high normal Not Available [facility] ([facility]) [address] [place], [address], 06/27/2023 08:22:05 06/26/19 24 06/27/2023 COMP. METAB OLIC PANEL (14) BUN 13 mg/dL 6-24 Not Available [facility] ([facility]) [address] [place], [address], 06/27/2023 08:22:05 06/26/19 24 06/27/2023 COMP. METAB OLIC PANEL (14) creatinine 0.83 mg/dL 0.76-1 .27 Not Available [facility] ([facility]) [address] [facility] [place], [address], 06/27/2023 08:22:05 06/26/19 24 06/27/2023 COMP. METAB OLIC PANEL (14) eGFR 103 mL/mi n/1.7 3 >59 Not Available [facility] ([facility]) [address] [place], [address], 06/27/2023 08:22:05 06/26/19 24 06/27/2023 COMP. METAB OLIC PANEL (14) BUN/creatini ne ratio 16 9-20 Not Available [facility] ([facility]) [address] [place], [address], 06/27/2023 08:22:05 06/26/19 24 06/27/2023 COMP. METAB OLIC PANEL (14) sodium 139 mmol/ L 134-14 4 Not Available [facility] ([facility]) [address] [place], [address], 06/27/2023 08:22:05 06/26/19 24 06/27/2023 COMP. METAB OLIC PANEL (14) potassium 4.4 mmol/ L 3.5-5. 2 Not Available [facility] ([facility]) [address] [place], [address], 06/27/2023 08:22:05 06/26/19 24 06/27/2023 COMP. METAB OLIC PANEL (14) chloride 104 mmol/ L 96-106 Not Available [facility] ([facility]) [address] [place], [address], 06/27/2023 08:22:05 06/26/19 24 06/27/2023 COMP. METAB OLIC PANEL (14) carbon dioxide, total 21 mmol/ L 20-29 Not Available [facility] ([facility]) [address] [place], [address], 06/27/2023 08:22:05 06/26/19 24 06/27/2023 COMP. METAB OLIC PANEL (14) calcium 9.3 mg/dL 8.7-10 .2 Not Available [facility] ([facility]) [address] [place], [address], 06/27/2023 08:22:05 06/26/19 24 06/27/2023 COMP. METAB OLIC PANEL (14) protein, total 6.3 g/dL 6.0-8. 5 Not Available [facility] ([facility]) [address] [place], [address], 06/27/2023 08:22:05 06/26/19 24 06/27/2023 COMP. METAB OLIC PANEL (14) albumin 4.3 g/dL 3.8-4. 9 Not Available [facility] ([facility]) [address] [place], [address], 06/27/2023 08:22:05 06/26/19 24 06/27/2023 COMP. METAB OLIC PANEL (14) globulin, total 2.0 g/dL 1.5-4. 5 Not Available [facility] ([facility]) [address] [place], [address], 06/27/2023 08:22:05 06/26/19 24 06/27/2023 COMP. METAB OLIC PANEL (14) A/G ratio 2.2 1.2-2. 2 Not Available [facility] ([facility]) [address] [facility], [place], [address], 06/27/2023 08:22:05 06/26/19 24 06/27/2023 COMP. METAB OLIC PANEL (14) bilirubin, total <0.2 mg/dL 0.0-1. 2 Not Available [facility] ([facility]) [address] [facility] [place], [address], 06/27/2023 08:22:05 06/26/19 24 06/27/2023 COMP. METAB OLIC PANEL (14) alkaline phosphatase 92 IU/L 44-121 Not Available [facility] ([facility]) [address] [facility], [place], [address], 06/27/2023 08:22:05 06/26/19 24 06/27/2023 COMP. METAB OLIC PANEL (14) AST (SGOT) 16 IU/L 0-40 Not Available [facility] ([facility]) [address] [facility], [place], [address], 06/27/2023 08:22:05 06/26/19 24 06/27/2023 COMP. METAB OLIC PANEL (14) ALT (SGPT) 11 IU/L 0-44 Not Available [facility] ([facility]) [address] [facility], [place], [address], 06/27/2023 08:22:05 06/26/19 24 06/27/2023 VITAM IN B12 AND FOLAT E vitamin B12 625 pg/mL 232-12 45 Not Available [facility] ([facility]) [address] [facility], [place], [address], 06/27/2023 08:22:06 06/26/19 24 06/27/2023 VITAM IN B12 AND FOLAT E folate (folic acid), serum 7.4 NG/mL >3.0 A serum folat e george ntrat ion of less than 3.1 ng/mL is consi dered to repre sent clini cory defic iency . Not Available [facility] ([facility]) [address] [facility], [place], [address], 06/27/2023 08:22:06 06/26/19 24 06/27/2023 ESR-W ES+CR P sedimentatio n rate-westerg carla 17 mm/HR 0-30 Not Available [facility] ([facility]) [address] [facility], [place], [address], 06/27/2023 08:22:07 06/26/19 24 06/27/2023 ESR-W ES+CR P C-reactive protein, quant 4 mg/L 0-10 Not Available [facility] ([facility]) [address] [facility], [place], [address], 06/27/2023 08:22:07 06/26/1906/27/2023 HEMOG LOBIN A1C hemoglobin A1C 5.7 % 4.8-5. 6 above high normal Predi abete s: 5.7 - 6.4 Diabe bijal: >6.4 Glyce delma contr ol for adult s with diabe bijal: <7.0 Not Available [facility] ([facility]) [address] [facility], [place], [address], 06/27/2023 08:22:07 06/26/19 24 06/26/2023 gluco se, finge rstic k, blood Blood Glucose: mg/dl 130 Not Available [facility] [address], [place], [address], 06/26/2023 16:20:08 06/26/19 24 06/26/2023 gluco se, finge rstic k, blood Reference Range (60-100) abnorm al Not Available [address], [place], [address], 06/26/2023 16:20:08 07/14/19 24 07/15/2023 TSH+F REE T4 TSH 4.080 uIU/m L 0.450- 4.500 Not Available [facility] ([facility]) [address] [facility], [place], [address], 07/15/2023 14:12:40 07/14/19 24 07/15/2023 TSH+F REE T4 T4,free(dire ct) 1.12 NG/dL 0.82-1 .77 Not Available [facility] ([facility]) [address] [place], [address], 07/15/2023 14:12:40 07/14/19 24 07/15/2023 HEPAT IC FUNCT ION PANEL (7) protein, total 6.5 g/dL 6.0-8. 5 Not Available [facility] ([facility]) [address] [place], [address], 07/15/2023 14:12:40 07/14/19 24 07/15/2023 HEPAT IC FUNCT ION PANEL (7) albumin 4.3 g/dL 3.8-4. 9 Not Available [facility] ([facility]) [address] [place], [address], 07/15/2023 14:12:40 07/14/19 24 07/15/2023 HEPAT IC FUNCT ION PANEL (7) bilirubin, total <0.2 mg/dL 0.0-1. 2 Not Available [facility] ([facility]) [address] [place], [address], 07/15/2023 14:12:40 07/14/19 24 07/15/2023 HEPAT IC FUNCT ION PANEL (7) bilirubin, direct <0.10 mg/dL 0.00-0 .40 Not Available [facility] ([facility]) [address] [place], [address], 07/15/2023 14:12:40 07/14/19 24 07/15/2023 HEPAT IC FUNCT ION PANEL (7) alkaline phosphatase 99 IU/L 44-121 Not Available [facility] ([facility]) [address] [place], [address], 07/15/2023 14:12:40 07/14/19 24 07/15/2023 HEPAT IC FUNCT ION PANEL (7) AST (SGOT) 13 IU/L 0-40 Not Available [facility] ([facility]) [address] [place], [address], 07/15/2023 14:12:40 07/14/19 24 07/15/2023 HEPAT IC FUNCT ION PANEL (7) ALT (SGPT) 10 IU/L 0-44 Not Available [facility] ([facility]) [address] [place], [address], 07/15/2023 14:12:40 07/14/19 24 07/15/2023 SJOGR EN'S AB, ANTI- SS-A/ -SS-B sjogren's anti-ss-A <0.2 ai 0.0-0. 9 Not Available [facility] ([facility]) [address] [place], [address], 07/15/2023 14:12:41 07/14/19 24 07/15/2023 SJOGR EN'S AB, ANTI- SS-A/ -SS-B sjogren's anti-ss-B <0.2 ai 0.0-0. 9 Not Available [facility] ([facility]) [address] [place], [address], 07/15/2023 14:12:41 07/14/19 24 07/15/2023 EBVCA (IGG/ M) ebv Ab vca, IgM <36.0 U/mL 0.0-35 .9 Negat kristen <36.0 Equiv ocal 36.0 - 43.9 Posit kristen >43.9 Not Available [facility] ([facility]) [address] [place], [address], 07/15/2023 14:12:41 07/14/19 24 07/15/2023 EBVCA (IGG/ M) ebv Ab vca, IgG 145.0 U/mL 0.0-17 .9 above high normal Negat kristen <18.0 Equiv ocal 18.0 - 21.9 Posit kristen >21.9 Not Available [facility] ([facility]) [address] [place], [address], 07/15/2023 14:12:41 07/14/19 24 07/15/2023 RHEUM ATOID FACTO R (RF) rheumatoid factor (rf) 10.9 IU/mL <14.0 Not Available [facility] ([facility]) [address] [place], [address], 07/15/2023 14:12:42 07/14/1907/15/2023 ACTIN (SMOO TH MUSCL E) ANTIB CINTHIA actin (smooth muscle) antibody 16 units 0-19 Negat kristen 0 - 19 Weak posit kristen 20 - 30 Moder ate to stron g posit kristen >30 Actin Antib odies are found in 52-85 % of patie nts with autoi mmune hepat itis or chron ic activ e hepat itis and in 22% of patie nts with prima ry bilia ry cirrh osis. Not Available [facility] ([facility]) [address] [place], [address], 07/15/2023 14:12:43 07/14/19 24 07/15/2023 VITAM IN D, 25-HY DROXY vitamin D, 25-hydroxy 30.6 NG/mL 30.0-1 00.0 Vitam in D defic iency has been defin ed by the Insti tute of Medic ine and an Endoc rine Socie ty pract ice guide line as a level of serum 25-OH vitam in D less than 20 ng/mL (1,2) . The Endoc rine Socie ty went on to furth er defin e vitam in D insuf ficie ncy as a level betwe en 21 and 29 ng/mL (2). 1. IOM (Inst itute of Medic ine). 2010. Davonte ry refer ence hadley es for calci um and D. Josue willams [place]: [facility] . 2. Jocelyn kohli [place], Binankit littlejohn [place], Bisch off-F errar i VALENCIA, et al. Evalu ation , treat ment, and preve ntion of vitam in D defic iency : an Endoc rine Socie ty clini cory pract ice guide line. JCEM. 2010; 96(7) :1911 -30. Not Available [facility] ([facility]) [address] [place], [address], 07/15/2023 14:12:43 07/14/19 24 07/15/2023 ANTI- DSDNA ANTIB ODIES anti-DNA (ds) Ab qn 1 IU/mL 0-9 Negat kristen <5 Equiv ocal 5 - 9 Posit kristen >9 Not Available [facility] ([facility]) [address] [place], [address], 07/15/2023 14:12:44 07/14/19 24 07/15/2023 ANTI- CCP AB, IGG/I GA anti-ccp Ab, IgG/IgA 17 units 0-19 Negat kristen <20 Weak posit kristen 20 - 39 Moder ate posit kristen 40 - 59 Stron g posit kristen >59 Not Available [facility] ([facility]) [address] [place], [address], 07/15/2023 14:12:44 07/14/19 24 07/15/2023 URIC ACID uric acid 4.8 mg/dL 3.8-8. 4 Thera jesika valderrama t for gout patie nts: <6.0 Not Available [facility] ([facility]) [address] [facility], [place], [address], 07/15/2023 14:12:45 07/14/19 24 07/15/2023 ANTIN UCLEA R AB MULTI PLEX RFX 9 ROOSEVELT direct Negati ve negati ve Not Available [facility] ([facility]) [address] [facility] [address], [place], [address], 07/15/2023 14:12:45 07/14/19 24 07/15/2023 SEDIM ENTAT ION RATE- WESTE RGREN sedimentatio n rate-westerg carla 7 mm/HR 0-30 Not Available [facility] ([facility]) [address] [facility] [address], [place], [address], 07/15/2023 14:12:46 07/14/19 24 07/15/2023 ANTIS TREPT OLYSI N O AB antistreptol ysin O Ab 132.0 IU/mL 0.0-20 0.0 Not Available [facility] ([facility]) [address] [facility] [address], [place], [address], 07/15/2023 14:12:46 07/14/19 24 07/15/2023 C-ANGELO CTIVE PROTE IN, QUANT C-reactive protein, quant 2 mg/L 0-10 Not Available [facility] ([facility]) [address] [facility] [address], [place], [address], 07/15/2023 14:12:47 12/21/19 23 XR, thora cic spine , 2 view No observ ation record ed. [facility] ([facility]) [address] [place] [address] [place], [address], 12/23/2022 08:59:54 12/21/19 23 XR, ribs, unila teral No observ ation record ed. [email or web address] [facility] (Centralized Scheduling) [address] [place] [address] [place], [address], 12/23/2022 08:59:53 12/21/19 23 XR, knee, 3 view No observ ation record ed. [email or web address] Not Available 12/01 08:59:53 06/27/19 24 XR, chest , 2 view No observ ation record ed. [address] , [place], [address], 2023 13:45:25 07/04/19 24 LDCT, chest , for lung cance r scree stephanie No observ ation record ed. [email or web address] [address], [place], [address], 07/09/2023 13:02:26 07/11/19 25 07/11/2024 XR, ankle , 3 or more view No observ ation record ed. [email or web address] [facility] [address] [facility], [place], [address], 07/12/2024 12:52:16 07/11/19 25 07/11/2024 XR, ankle , 3 or more view No observ ation record ed. [email or web address] [facility] [address], [place], [address], 07/12/2024 13:27:00 09/14/19 25 09/13/2024 CT, cervi cory spine , w/o contr ast No observ ation record ed. [email or web address] [facility] ([facility]) [address] [facility] , [place], [address], 09/16/2024 09:55:22 10/13/19 25 10/12/2024 XR, tibia + fibul a, 2 view No observ ation record ed. [email or web address] [facility] [address], [place], [address], 10/13/2024 09:20:53 05/16/20 25 10/12/2024 MRI, cervi cory spine , w/o contr ast No observ ation record ed. [email or web address] [facility] [address], [place], [address], 10/18/2024 10:26:03 Result Notes None recorded. Problems Name Problem SNOMED Code Status Onset Date Resolution Date Notes Provider Name and Address Organization Details Recorded Time Low back pain 936520764 Active 2022 Suzanne Chavez PA-C [address], [place], [address] , [place] - [facility] 3 08:16:54 Gastroesophag eal reflux disease 812206180 Active Leyla Anjelica null, [place] - [facility] 7 16:32:51 Neck pain 34477483 Active 2024 Suzanne Chavez PA-C [address], [place], [address] , [place] - [facility] 5 16:18:10 Degeneration of cervical intervertebra l disc 51457355 Active 2024 Suzanne Chavez PA-C [address], [place], [address] , [place] - [facility] 5 16:02:25 Pain in left knee Active Leyla Anjelica null, [place] - [facility] 7 15:42:47 Problem Notes None recorded. Medical Equipment None Reported. Allergies Allergen ID Allergen Name Allergen Category Reaction Reaction Severity Criticality Documentation Date Start Date Code Code System Note Provider Name and Address Organization Details Recorded Time 95071 codeine phosphate medicatio n Not available Not available Not available 03/08/20162009 2672 RxNorm Not Available [facility] 6 10:07:36 96948 codeine sulfate medicatio n Not available Not available Not available 03/08/20162009 67142 RxNorm Not Available [facility] 6 10:07:37 Medications Name Sig [...] nued on: 01/10/20 15 12:59PM; User: mitul;Yesy Zelaya on: 06/12/19 15;Pharm acyVerif ied: 06/07/19 15 12:20PM Not Available Not [...] on: 08/21/19 13 4:35PM;U ser: [email or web address]; Est. Nathalie on: 06/18/19 13;Print ed: 06/08/19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
--- NOTE | 2024-11-23 17:57 | CT_ITS ---
PROCEDURE INFORMATION: Exam: CT Chest Without Contrast; Diagnostic Exam date and time: 11/23/2024 6:49 PM Age: 59 years old Clinical indication: Injury or trauma; Fall; Blunt trauma (contusions or hematomas) TECHNIQUE: Imaging protocol: Diagnostic computed tomography of the chest without contrast. Radiation optimization: All CT scans at this facility use at least one of these dose optimization techniques: automated exposure control; mA and/or kV adjustment per patient size (includes targeted exams where dose is matched to clinical indication); or iterative reconstruction. COMPARISON: CT CHEST WO CON 11/23/2024 6:49 PM FINDINGS: Lungs: Emphysematous changes. A 4 mm nodule anterior right upper lobe on image 35 of series 3. A 4 mm nodule anterior left upper lobe on image 47. Lung joseph otherwise clear. Pleural spaces: Unremarkable. No pneumothorax. No pleural effusion. Heart: Unremarkable. No cardiomegaly. No pericardial effusion. Coronary arteries: No significant coronary artery calcifications. Lymph nodes: Unremarkable. No enlarged lymph nodes. Vasculature: Unremarkable. No aortic aneurysm. Diaphragm: Small hiatal hernia. Bones/joints: Unremarkable. No acute fracture. Soft tissues: Unremarkable. IMPRESSION: 1. No acute abnormality. 2. COPD. 3. Incidental lung nodules measuring up to 4 mm. For patients at low risk (minimal or absent history of smoking and of other known risk factors), no routine follow-up is indicated. For patients at high risk (history of smoking or of other known risk factors), consider optional CT Chest at 12 months. (Reference: Jocelynn) COMMENTS: The presence of pulmonary emphysema on CT is an independent risk factor for lung cancer. In the absence of a history or active diagnosis of lung cancer, it is recommended that this patient with emphysema be evaluated for enrollment in a low dose CT lung cancer screening program. REFERENCES: Jocelynn Nath et al. Guidelines for Management of Incidental Pulmonary Nodules Detected on CT Images: From the Fleischner Society 2017. Radiology. 2017;284(1):228-243.
--- NOTE | 2024-11-23 18:07 | HMH.EDGENADL ---
Discharge Plan Disposition Patient Disposition: Home, Self-Care Prescriptions Prescriptions: New oxycodone 5 mg tablet 5 mg PO Q8H PRN (Reason: pain (scale score 7-10)) Qty: 18 0RF Rx Instructions: Please take only after Tylenol, Robaxin, ibuprofen have not been enough ibuprofen 600 mg tablet 600 mg PO Q8H PRN (Reason: pain (scale score 4-6)) Qty: 18 0RF methocarbamol 1,000 mg tablet 1,000 mg PO Q8H PRN (Reason: muscle spasm) Qty: 42 0RF No Action buprenorphine-naloxone 8-2 mg tablet, sublingual 2 tab SUBLINGUAL DAILY Patient Comments: DISSOLVE 2 TABLETS UNDER THE TONGUE ONCE DAILY Referrals Follow up/Referrals: Suzanne Daugherty PA [Primary Care Provider, Medical] - See instructions Activity Restrictions/Add. Instructions Additional Instructions/Restrictions: At this time it was felt you are safe to be discharged home. If new or worsening symptoms please do not hesitate to return the emergency department. Please take your medications as prescribed and take 1000 mg of Tylenol every 6 hours on top of this. It is very important that you follow-up with your family doctor as soon as possible over the next few days and get referred for physical therapy, these fractures are weightbearing as tolerated . They will take a while to heal and will be painful. As discussed do not take your Suboxone while you are taking oxycodone and only take your oxycodone when absolutely necessary as you are at very high risk for addiction but have significant fractures that will cause significant pain. Clinical Impressions Clinical Impression: Closed sacral fracture, Closed fracture of right superior pubic ramus, Closed fracture of right inferior pubic ramus Print Language Print Language: Macedonian Discharge ED Provider: Ady Machuca General Adult HPI <Alma Devries (ED), INTERNATIONAL SALES REPRESENTATIVE - Last Filed: 11/23/24 19:05> General Chief complaint: Fall Stated complaint: AO Fall 11/22/24 18:30 Hit straight back Head all Time Seen by Provider: 11/23/24 17:36 Mode of Arrival: Wheelchair Source of Information: Patient Description of Symptoms (Recalled from ER Triage Doc. by RN): patient presents to ED after a fall yesterday 11/22/24. Patient reports he was pressure washing and fell out of the back of a truck. Reports Right hip and back pain 03/11. Patient denies hitting his head and no LOC. History of Present Illness HPI narrative: 59-year-old male presents to the ED after falling out of the back of a truck yesterday. He complains of right elbow pain, right shoulder pain, right hip and right low back pain as well as inability to bear weight on his right leg. He says he landed on his right side. He did not hit his head or lose consciousness. He has no nausea or vomiting. He is on no blood thinners. Related Data Home Medications ?Medication ?Instructions ?Recorded ?Confirmed buprenorphine 8 mg-naloxone 2 mg 2 tab sublingual DAILY 07/11/24 07/11/24 sublingual tablet Previous Rx's ?Medication ?Instructions ?Recorded ibuprofen 600 mg tablet 600 mg PO Q8H PRN pain (scale 11/23/24 score 4-6) #18 tabs methocarbamol 1,000 mg tablet 1,000 mg PO Q8H PRN muscle spasm 11/23/24 #42 tabs oxycodone 5 mg tablet 5 mg PO Q8H PRN pain (scale score 11/23/24 7-10) #18 tabs Allergies Allergy/AdvReac Type Severity Reaction Status Date / Time codeine Allergy Intermediate ITCHING Verified 07/11/24 11:54 [facility] <Alma Devries (ED), INTERNATIONAL SALES REPRESENTATIVE - Last Filed: 11/23/24 19:05> [facility] Disclaimer: The information contained in this section may have been updated after the patient was seen, as this information can be updated by other users. Medical History History of illicit drug use Surgical History (Updated 07/11/24 @ 11:54 by Tiffanie Gimenez RN) Hx of shoulder surgery Social History Smoking Status: Current every day smoker alcohol intake: current alcohol intake frequency: holidays/special occasions only current occupational status: employed Travel in the last 8 weeks?: None housing: house Have you lived/traveled outside [place] in past 30 days?: No Contact w/someone who lives/traveled outside [place] past 30 days?: No Exposure to someone with infectious disease in past 14 days?: No Do you have a fever (greater than 100.4 F or 38 C)?: No Have you tested positive for COVID-19?: No Exposed to someone with COVID-19 in past 14 days?: No Do you have a sore throat?: No Do you have a cough?: No Do you have any weakness?: No Do you have any diarrhea?: No Are you experiencing any unusual bleeding?: No Do you have any muscle aches/pain?: No Do you have any abdominal pain?: No Are you experiencing loss of taste or smell?: No Other Medical History Have you received the Pneumonia Vaccine: No <Almamahendra Devries (ED), INTERNATIONAL SALES REPRESENTATIVE - Last Filed: 11/23/24 19:05> ROS Obtained: Yes Systems reviewed as appropriate & no additional complaints except as documented Constitutional Constitutional: Reports as per HPI Physical Exam <[facility] ([facility]), INTERNATIONAL SALES REPRESENTATIVE - Last Filed: 11/23/24 19:05> General General appearance: alert and in distress Head Head exam: normocephalic Eye Eye exam: Present PERRL and EOMI ENT ENT exam: Present normal oropharynx and mucous membranes moist Neck Neck exam: Present full ROM and trachea midline Chest Chest inspection: Present normal inspection Respiratory Respiratory exam: Present normal lung sounds bilaterally Cardiovascular Cardiovascular exam: Present regular rate, normal rhythm, normal heart sounds, +S1 and +S2 Abdominal Exam Abdominal exam: Present soft and normal bowel sounds Extremities Exam Extremities exam: Present tenderness, normal capillary refill and other (Right hip) Back Exam Back exam: Present paraspinal tenderness and vertebral tenderness Neurological Exam Neurological exam: Present alert and oriented X3 Skin Skin exam: Present warm, dry and intact Medical Decision Making <Alma [facility] (ED), INTERNATIONAL SALES REPRESENTATIVE - Last Filed: 11/23/24 19:05> Medical Records Medical records reviewed: Yes I reviewed the patient's medical records. Screening: Per USPSTF and CDC recommendations, given the prevalence of disease in our region, it is our hospital?s policy to screen for HIV and viral Hepatitis for all patients aged 18 and over and those with ongoing risk factors. Justin Inquiry Pt receiving controlled substance: No Justin was queried for this patient: No Vital Signs: 11/23/24 17:42 Temperature 98.2 F Temperature Source Oral Pulse Rate [Right Brachial] 79 Respiratory Rate 20 Blood Pressure [Right Arm] 118/60 Blood Pressure Mean [Right Arm] 79 02 Sat by Pulse Oximetry 96 Oxygen Delivery Method Room Air Orders (Tests/Meds): ED MEDICATIONS Discontinued Medications Generic Name Dose Route Start Last Admin Trade Name Coty PRDutch Reason Stop Dose Admin Acetaminophen 1,000 mg 11/23/24 18:32 11/23/24 18:45 Acetaminophen 1,000mg/100ml Vial IV 11/23/24 18:33 Not Given ONCE ONE Acetaminophen 1,000 mg 11/23/24 18:45 11/23/24 18:46 Acetaminophen 500mg Tab PO 11/23/24 18:46 1,000 mg ONCE ONE Administration Ibuprofen 800 mg 11/23/24 20:50 11/23/24 20:56 Ibuprofen 400 Mg Tablet PO 11/23/24 20:51 800 mg ONCE ONE Administration Methocarbamol 500 mg 11/23/24 18:33 11/23/24 18:46 Methocarbamol 500mg Tablet PO 11/23/24 18:34 500 mg ONCE ONE Administration Oxycodone HCl 5 mg 11/23/24 20:50 11/23/24 20:56 Oxycodone 5mg Immediate Release Tablet PO 11/23/24 20:51 5 mg ONCE ONE Administration ORDERS Category Date Time Status CT bony pelvis Stat Cat Scan 11/23/24 17:[address] chest wo con Stat Cat Scan 11/23/24 17:[address] lumbar spine wo con Stat Cat Scan 11/23/24 17:[address] thoracic spine wo con Stat Cat Scan 11/23/24 17:45 Completed Elbow XR right minimum 3 views [XR elbow RT min 3V] Exams 11/23/24 17:45 Completed Stat Femur XR right 2 views [XR femur RT 2V] Stat Exams 11/23/24 17:45 Completed Shoulder XR right miminum 2 views [XR shoulder RT min Exams 11/23/24 17:45 Completed 2V] Stat Medical Decision Narrative: patient is a 59-year-old male presenting to the emergency department for evaluation of a fall out of his truck falling onto his right side yesterday. He says he fell onto his right hip, right low back, right elbow and right shoulder. He tells me that he is unable to bear weight on his right leg due to the pain in his right low back and right hip. Patient is hemodynamically stable and nontoxic-appearing upon arrival, afebrile. Differential diagnosis includes fractures versus sprains and strains of right elbow, right shoulder, right hip and low back. Workup will be conducted with specific imaging. Discussed with Dr. Machuca. <Ady Machuca MD - Last Filed: 11/23/24 21:10> Vital Signs: 11/23/24 17:42 Temperature 98.2 F Temperature Source Oral Pulse Rate [Right Brachial] 79 Respiratory Rate 20 Blood Pressure [Right Arm] 118/60 Blood Pressure Mean [Right Arm] 79 02 Sat by Pulse Oximetry 96 Oxygen Delivery Method Room Air Orders (Tests/Meds): ED MEDICATIONS Discontinued Medications Generic Name Dose Route Start Last Admin Trade Name Freq PRN Reason Stop Dose Admin Acetaminophen 1,000 mg 11/23/24 18:32 11/23/24 18:45 Acetaminophen 1,000mg/100ml Vial IV 11/23/24 18:33 Not Given ONCE ONE Acetaminophen 1,000 mg 11/23/24 18:45 11/23/24 18:46 Acetaminophen 500mg Tab PO 11/23/24 18:46 1,000 mg ONCE ONE Administration Ibuprofen 800 mg 11/23/24 20:50 11/23/24 20:56 Ibuprofen 400 Mg Tablet PO 11/23/24 20:51 800 mg ONCE ONE Administration Methocarbamol 500 mg 11/23/24 18:33 11/23/24 18:46 Methocarbamol 500mg Tablet PO 11/23/24 18:34 500 mg ONCE ONE Administration Oxycodone HCl 5 mg 11/23/24 20:50 11/23/24 20:56 Oxycodone 5mg Immediate Release Tablet PO 11/23/24 20:51 5 mg ONCE ONE Administration ORDERS Category Date Time Status CT bony pelvis Stat Cat Scan 11/23/24 17:[address] chest wo con Stat Cat Scan 11/23/24 17:[address] lumbar spine wo con Stat Cat Scan 11/23/24 17:[address] thoracic spine wo con Stat Cat Scan 11/23/24 17:45 Completed Elbow XR right minimum 3 views [XR elbow RT min 3V] Exams 11/23/24 17:45 Completed Stat Femur XR right 2 views [XR femur RT 2V] Stat Exams 11/23/24 17:45 Completed Shoulder XR right miminum 2 views [XR shoulder RT min Exams 11/23/24 17:45 Completed 2V] Stat Medical Decision Narrative: patient is a 59-year-old male presenting to the emergency department for evaluation of a fall out of his truck falling onto his right side yesterday. He says he fell onto his right hip, right low back, right elbow and right shoulder. He tells me that he is unable to bear weight on his right leg due to the pain in his right low back and right hip. Patient is hemodynamically stable and nontoxic-appearing upon arrival, afebrile. Differential diagnosis includes fractures versus sprains and strains of right elbow, right shoulder, right hip and low back. Workup will be conducted with specific imaging. Discussed with Dr. Machuca. Ady Machuca: Upon assumption of care patient is hemodynamically stable. Workup reviewed by me, trauma survey remarkable for right sacral ala fracture, right superior and inferior pubic ramus fracture. The case was discussed with Dr. Doss regarding management of her weightbearing fractures. Secondary survey no acute other findings that would warrant additional imaging. Remainder of trauma survey negative. Incidental lung nodules. Incidental thickening of the distal esophagus. Patient is on Suboxone but has not taken it for over 24 hours. Prolonged decision-making discussion was had he does need acute pain treatment and wishes to receive opiates at this time for which 5 mg of oxycodone will be administered. Patient is able to have 5 out of 5 strength with extension at the knee although it produces pain, is distally neurovascularly intact has no saddle anesthesia and postvoid residual is 0 I have no concern for spinal cord injury. Patient will be discharged with a course of multimodal pain control including oxycodone and will follow-up with his family doctor to coordinate rapid physical therapy/Occupational Therapy evaluation and keep an eye on his incidental findings. Patient was given return precautions. Critical Care <Alma Devries (ED), INTERNATIONAL SALES REPRESENTATIVE - Last Filed: 11/23/24 19:05> Critical Care Time Critical Care Time: No
[2024-11-23] MEDS: ACETAMINOPHEN 500MG TAB 1000 MG PO (18:46)
[2024-11-23] MEDS: METHOCARBAMOL 500MG TABLET 500 MG PO (18:46)
[2024-11-23] MEDS: IBUPROFEN 400 MG TABLET 800 MG PO (20:56)
[2024-11-23] MEDS: OXYCODONE 5MG IMMEDIATE RELEASE TABLET 5 MG PO (20:56)
[2024-11-23 21:15] VITALS: BP 138/98; PULSE 88; RESP 22; TEMP 36.6; O2SAT 98
--- NOTE | 2024-11-23 21:43 | PC.NURSE ---
spoke with patient regarding pulmonary nodule and esophageal thickening seen on CT scan. Encourage patient to follow up with primary care doctor. Pt stated he understood information and would schedule followups.
--- NOTE | 2024-11-24 10:16 | PC.NURSE ---
Addendum entered by Ellen Fowler RN 11/24/24 17:48: Approval for med obtained earlier today. Received call about this around 1545 again. Nicolas saying auth not in system. Told phillip auth had been obtained. Phillip had to call to obtain auth again for medication. Verified with Nicolas auth did go through today. Original Note: Nicolas called to clarify oxy IR. I spoke with and he ok'd the order. Nicolas pharmd states they need a PA. I called and spoke with Yessenia in case management. She is working on it at this time.
== END 2024-11-23 21:26 | disposition home or self-care (01) ==
PROVIDERS: Emergency Provider Emergency Medicine; PCP Physician Assistant
DX: S32.511A Fracture of superior rim of right pubis, initial encounter for closed fracture (principal); S32.591A Other specified fracture of right pubis, initial encounter for closed fracture; S32.10XA Unspecified fracture of sacrum, initial encounter for closed fracture; F17.210 Nicotine dependence, cigarettes, uncomplicated; R91.1 Solitary pulmonary nodule; K22.89 Other specified disease of esophagus; W17.89XA Other fall from one level to another, initial encounter
CPT/HCPCS: 71250; 72128; 72131; 72192; 73030; 73080; 73552; 99285

== ENCOUNTER 2024-12-28 10:19 | Outpatient (CLI) | payer OTHER, SELFPAY ==
--- NOTE | 2024-12-28 10:20 | XR_ITS ---
FINAL REPORT TECHNIQUE: 3 views of the pelvis were obtained. CLINICAL HISTORY: pelvis fx COMPARISON: CT of the pelvis dated 11/23/2024 FINDINGS: PELVIS: 3 views of the pelvis were obtained. There is irregularity of the right pubis and lateral aspect of the right superior pubic ramus, that likely represent healing fractures. The fractures of the right sacrum are not well-seen on this examination. Degenerative changes of the hips are present bilaterally. IMPRESSION: Irregularity of the right pubis and lateral aspect of the right superior pubic ramus, that likely represent healing fractures. Fractures of the right sacrum are not visualized on this examination. Reviewed, Interpreted and Dictated by Awilda Renteria MD Transcribed by Tamika Jeong Authenticated and [facility]
--- OUTSIDE RECORDS SUMMARY | 2024-12-28 10:23 | XMS_ITS | Continuity of Care Document ---
[facility] Organization [facility] Address [address] [place] [address] Assessment Encounter Date Assessment Date Assessment LastModified by Organization Details LastModified Time 11/25/2024 11/25/2024 -Medications were reviewed and any necessary updates and renewals were made, patient instructed to complete as prescribed. -The potential side effects of medications were discussed. -Counseling was done on care goals and ways to prevent future hospitalizatio ns. -Further treatment per orders listed below. [email or web address] Not available 11/25/2024 11:50:25 Plan of Treatment Reminders Order Date Submit Date Provider Last Modified By Organization Details Last Modified Time Details Appointments None recorded. Lab None recorded. Referral orthopedic surgeon referral 2024 025 [facility], [address] , [place], [address], 14:24:44 gastroente rologist referral 2024 025 luis Liz MD, [address] [place] [address] , [place] [address], [place], [address], 13:47:27 Procedures None recorded. Surgeries None recorded. Imaging CT, chest, w/o contrast 2024 026 luis [facility], [address] [place], [address], 13:10:47 Medication Orders None recorded. Patient TargetsNo targets recorded. Patient Instructions Encounter Date Encounter Id Patient Instructions Last Modified By Organization Details Last Modified Time 11/25/2024 [id number] smoking and tobacco use cessation counseling* [email or web address] Not available 11/25/2024 13:39:02 Call with change s RTC or ED if symptoms change or worsen Keep next interval check-up Cont. chronic meds as prescribed Chronic conditions are stable Discussed natural and expected course of this diagnosis and need to alert me if symptoms do not follow expected course or if any worsens [email or web address] Not available 11/25/2024 12:13:01 Reason for Referral [employer] Referral for Disorder of esophagus Referring Physician: Suzanne Chavez [facility], Encounter Date: 11/25/2024 Orthopedic Surgeon Referral for Closed fracture sacrum Referring Physician: Suzanne Chavez [facility], Encounter Date: 11/25/2024 Results Created Date Observation Date Name Description Value Unit Range Abnormal Flag Note LastModifiedBy Organization Detail LastModifiedTime 11/24/1911/23/2024 CT, pelvi s, w/o contr ast No observ ation record ed. [address], [place], [address], 11/26/2024 11:37:47 11/24/19 25 11/23/2024 CT, chest , w/o contr ast No observ ation record ed. [address], [place], [address], 11/26/2024 11:38:13 11/24/19 25 11/23/2024 CT, thora cic spine , w/o contr ast No observ ation record ed. [address], [place], [address], 11/26/2024 11:38:23 11/24/19 25 11/23/2024 CT, lumba r spine , w/o contr ast No observ ation record ed. [address], [place], [address], 11/26/2024 11:38:44 11/24/19 25 11/23/2024 XR, tibia + fibul a, 2 view No observ ation record ed. [email or web address] [facility] [address], [place], [address], 11/24/2024 10:49:32 11/24/19 25 11/23/2024 XR, tibia + fibul a, 2 view No observ ation record ed. [email or web address] [facility] [address], [place], [place], [address], 11/24/2024 10:49:32 11/24/19 25 11/23/2024 XR, shoul philip No observ ation record ed. [email or web address] [facility] [address], [place], [address], 11/26/2024 11:39:02 Result Notes None recorded. Problems Name Problem SNOMED Code Status Onset Date Resolution Date Notes Provider Name and Address Organization Details Recorded Time Gastroesophag eal reflux disease 064807026 Active Leyla Anjelica null, [place] - [facility] 16:32:51 Pain in left knee Active Leyla Anjelica null, [place] - [facility] 15:42:47 Low back pain 890855888 Active 2022 Suzanne Chavez PA-C [address], [place], [address] , [place] - [facility] 08:16:54 Neck pain 46170449 Active 2024 Suzanne Chavez PA-C [address], [place], [address] , [place] - [facility] 16:18:10 Degeneration of cervical intervertebra l disc 16805248 Active 2024 Suzanne Chavez PA-C [address], [place], [address] , [place] - [facility] 16:02:25 Closed fracture sacrum 119177843 Active 2024 Suzanne Chavez PA-C [address], [place], [address] , [place] - [facility] 5 07:59:06 Closed fracture of pubic ramus Active 2024 Suzanne Chavez PA-C [address], [place], [address] , [place] - [facility] 07:59:47 Chronic obstructive pulmonary disease 13958272 Active 2024 Suzanne Chavez PA-C [address], [place], [address] , [place] [facility] 08:01:44 Nodule of lung 540210464 Active 2024 Suzanne Chavez PA-C [address], [place], [address] , [place] [facility] 08:01:51 Disorder of esophagus 44341518 Active 2024 Suzanne Chavez PA-C [address], [place], [address] , [place] - [facility] 08:04:11 Problem Notes None recorded. Procedures Surgical History Date Name Laterality Status Provider Name and Address Organization Details Recorded Time 11/26/19 Medication Reconcilliation completed Susan Marte [place] - [facility] 11/25/2024 11:50:25 Imaging Results None recorded. Procedure Notes None recorded. Medical Equipment None Reported. Allergies Allergen ID Allergen Name Allergen Category Reaction Reaction Severity Criticality Documentation Date Start Date Code Code System Note Provider Name and Address Organization Details Recorded Time 35239 codeine phosphate medicatio n Not available Not available Not available 03/08/20162009 2672 RxNorm Not Available [facility] 6 10:07:36 01661 codeine sulfate medicatio n Not available Not available Not available 03/08/20162009 39302 RxNorm Not Available [facility] 6 10:07:37 Medications Name Sig Start Date Stop Date Status Note LastModified by Organization Details LastModified Time amoxicill in 500 mg capsule TAKE ONE CAPSULE BY MOUTH THREE TIMES DAILY -- FINISH ALL MEDICINE -- 09/13 completed Not Available Not Available Not Available methocarb yusra 500 mg tablet TAKE 2 TABLETS BY MOUTH EVERY 8 HOURS NEEDED FOR MUSCLE SPASM active Not Available Not Available No t Available clindamyc in HCl 300 mg capsule [...] 12:59PM; User: [email or web address];Yesy Zelaya on: 06/12/19 15;Pharm [place] ied: 06/07/19 15 12:20PM Not Available Not [...] Disconti nued on: 08/21/19 13 4:35PM;U ser: [email or web address]; Est. Completi on: 06/18/19 13;Print ed: 06/08/19 [...] Disconti nued on: 03/12/20 12 4:19PM;U ser: [email or web address]; Est. Completi on: 11/25/19 11;Indic ation: Pain - (16.7809 00) Not Available Not Available Not Available [...] Disconti nued on: 03/25/20 14 4:31PM;U ser: gored;Yesy correia Completi on: 12/09/19 14;Pharm acyVerif ied: 09/10/19 [...] 01/10/20 15 12:59PM; User: [email or web address];Yesy Zelaya on: 06/17/19 15;Indic ation: Cough - (16.7862 00);Phar macyVeri fied: 06/07/19 15 12:20PM Not Available Not Available Not Available methocarb yusra 750 mg tablet TAKE 1 TABLET BY MOUTH THREE TIMES DAILY NEEDED 09/27 completed Not Available Not Available Not Available cephalexi n 500 mg capsule TAKE 1 CAPSULE BY MOUTH EVERY 8 HOURS UNTIL GONE 12/12 completed Not Available Not Available Not Available pantopraz ole 40 mg tablet,de layed release TAKE ONE (1) TABLET BY MOUTH EVERY DAY BEFORE A MEAL active Not Available Not Available No t Available Cipro 500 mg tablet take 1 tablet (500 mg) by oral route 2 times per day for 10 days 03/25 completed Cipro 500 mg oral tablet;P rescribe Status: Prescrib ed on: 09/10/19 14 3:26PM;D iscontin ued Status: Disconti nued on: 03/25/20 14 4:31PM;U ser: gored;Es t. Completi on: 09/20/19 14;Pharm [place] ied: 09/10/19 14 3:26PM Not Available Not [...] Not Available Not Available Not Available ibuprofen 600 mg tablet TAKE 1 TABLET BY MOUTH EVERY 8 HOURS NEEDED FOR PAIN (ON A PAIN SCALE SCORE OF 4-6) active Not Available Not Available No t Available methylpre dnisolone 4 mg tablets in a dose pack TAKE BILLIE Miranda TO PACKAGE INSTRUCT IONS --TAKE WITH FOOD-- -- FINISH ALL MEDICINE -- 09/13 completed Not Available Not Available Not Available cefdinir 300 mg capsule take 1 capsule (300 mg) by oral route every 12 hours for 10 days 02/03 completed cefdinir 300 mg oral capsule; Prescrib e Status: Prescrib ed on: 01/25/20 16 8:57AM;U ser: [email or web address] ;Est. Completi on: 02/04/20 16;Pharm acyVsanta ied: 01/25/20 16 8:57AM Not Available Not Available Not Available Zovirax 5 % topical ointment apply to the affected area(s) by topical route every 3 hours 6 times per day for 7 days 07/05 completed Zovirax 5 % topical ointment ;Recorde d Status: Recorded on: 04/05/20 10 3:14PM;D iscontin ued Status: Disconti nued on: 07/05/19 11 8:17AM;U ser: gored;Es t. Completi on: 04/12/20 10;Print ed: 04/05/20 10 Not Available Not Available Not Available fluticaso ne propionat e 50 mcg/actua tion nasal spray,nasir pension inhale 1 spray (50 mcg) in each nostril by intranas al route once daily for 14 days 03/31 completed fluticas one 50 mcg/actu ation nasal spray,cody spension ;Prescri be Status: Prescrib ed on: 01/04/20 16 3:56PM;D Mobile Accord ued Status: Disconti nued on: 01/25/20 16 [...] completed Not Available Not Available Not Available oxycodone 5 mg tablet TAKE 1 TABLET BY MOUTH EVERY 8 HOURS NEEDED FOR PAIN (SCALE SCORE OF 7-10). PLEASE TAKE ONLY AFTER TYLENOL, ROBAXIN, IBUPROFE N HAVE NOT BEEN ENOUGH. active Not Available Not Available No t Available buprenorp giovani 8 mg-naloxo ne 2 [...] 13 4:35PM;U ser: [email or web address]; Est. Completi on: 07/30/19 13;Indic ation: sinus [...] 15 11:41AM; User: jie Est. Completi on: 04/07/20 14;Indic ation: infectio [...] Disconti nued on: 11/15/19 11 2:03PM;U ser: [email or web address]; Est. Completi on: 07/15/19 11 Not Available [...] Available Vitals Date Recorded Respiratory rate Body temperature Body weight Heart rate Oxygen saturation Oxygen saturation in Arterial blood by Pulse oximetry Pain severity - 0-10 verbal numeric rating [Score] - Reported Systolic And Diastolic Provider Name and Address Organization Details Last Updated DateTime 5 14 /min 98.6 [degF] 74285.3 3 g 87 /min 96 % 96 % 10 126/82 mm[Hg] Susan Marte [place] - [facility] 11:56:26 Social History Question Answer Notes LastModified by Organizat ion Details LastModified Time Tobacco Smoking Status Current Every Day Smoker Nacho padron, [place] - [facility] 03/28/2016 08:49:15 Able To [...] COVID-19 While That Case Was Ill? No [email or web address] Information n ot available 12/20/2022 In The 14 Days Before Symptom Onset, Have You Had Close Contact With A Person Who Is Under Investigation For COVID-19 While That Person Was Ill? No [email or web address] Information not available 12/20/2022 Have You Been To An Area Known To Be High Risk For COVID-19? No [email or web address] Information not available 12/20/2022 Are You Deaf Or Do You Have Serious Difficulty Hearing? No Information not available 08/21/2016 What Type Of Diet Are You Following? REGULAR Information n ot available 08/21/2016 Have You Processed Blood Or Body Fluids From An Ebola Virus Disease Patient Without Appropriate PPE? No [email or web address] Information not available 12/20/2022 Do You Reside In Or Have You Traveled To An Area Where Ebola Virus Transmission Is Active? No [email or web address] Information not available 12/20/2022 Swimming/diving Yes Informati on not available 08/21/2016 Hard Of Hearing Or Deaf In One Or Both Ears? No Information not available 08/21/2016 Have You Recently Or Are You Planning To Travel To An Area With Zika Virus? No Information not available 12/20/2022 Legally Blind In One Or Both Eyes? No Information no t available 08/21/2016 Live Alone Or With Others? With Others Information not available 08/21/2016 What Was The Date Of Your Most Recent Tobacco Screening? 11/25/2024 [email or web address] Information not available 11/25/2024 How Many Children Do You Have? 1 Information not available 08/21/2016 What Is Your Current Pack Years? 30ormorepacky ears [email or web address] Information not available 12/20/2022 What Is Your Relationship Status? Single Information not available 08/21/2016 Seat Belts Used Routinely Yes Information not available 08/21/2016 Smoke Alarm In Home Yes Information not available 08/21/2016 At What Age Did You Start Smoking Tobacco? 18 [email or web address] Information not available 12/20/2022 Are You Passively Exposed To Smoke? Yes Information no t available 08/21/2016 How Much Tobacco Do You Smoke? 1 PPD [email or web address] Information not available 03/28/2016 General Stress Level High Information not available 08/21/2016 Has Tobacco Cessation Counseling Been Provided? Yes [email or web address] Information not available 12/20/2022 On What Date Was Tobacco Cessation Counseling Provided? 11/25/2024 [email or web address] Information not available 11/25/2024 How Many Years Have You Smoked Tobacco? 30 [email or web address] Information not available 12/20/2022 Do You Have Difficulty Walking Or Climbing Stairs? No Information not available 08/21/2016 Sex: Male Functional Status Question Answer Note LastModified by Organizat ion Details LastModified Time How many times per week do you consume alcohol? Less than 1 time per week [email or web address] Information not available 12/20/2022 Do you use any illicit or recreational drugs? No [email or web address] Information not available 12/20/2022 Do you or have you ever used any other forms of tobacco or nicotine? No [email or web address] Information not available 12/20/2022 What is your level of alcohol consumption? Moderate Information not available 08/21/2016 Are you currently employed? No Information not available 08/21/2016 Are you able to walk? YESWOREST Information not available 08/21/2016 Do you have difficulty doing errands alone? No Information not available 08/21/2016 Are you able to care for yourself independently? Yes Information not available 08/21/2016 Do you have difficulty dressing, bathing, grooming, or toileting? No Information not available 08/21/2016 What is [...] colitis N Cerebrovascular Disease N Depression N Guillain-Phoenix N Sleep Apnea N Aneurysm N Bronchitis N Heart Disease N Suicidal Ideation N Pre-Eclampsia N Hypertension N Osteoporosis N Immunizations Vaccine Type Date Status Note Provider Nam e and Address Organization Details Recorded Time pneumococcal polysaccharide PPV23 completed Billie Reina [facility], [place] - [facility] 12/20/2020 17:05:38 Past Encounters Encounter ID Performer Location Encounter Start Date Encounter Closed Date Diagnosis/Indication Diagnosis SNOMED-CT Code Diagnosis ICD10 Code Diagnosis Note [id number] Suzanne Chavez PA-C [address] [address] 11/25/2024 11:45:01 11/25/2024 13:10:46 Closed fracture sacrum 710322822 S32.10XD -[facility] sed getting in with ortho and Pt pending that, discussed cautions to return to ER.Pt would like a wheel chair as it is difficult for him to move around with the crutches a lot Closed fra cture of pubic ramus 9560251863 S32.591A Chronic ob structive pulmonary disease 40788898 J44.9 -noted on ct scandiscus sed PFTs after healing Nodule of lung 020119515 R91.1 pack a day x [address] in 1 year Disorder of esophagus 37 894379 K22.89 -New, noted on CT, possibly from esophagiti s but could not rule out other causes Health Concerns Section Related Observation LastModified by Organization Detai ls LastModified Time None Recorded Concern Status LastModified by Organization Details LastModified Time None Recorded Payers Encounter Date Sequence Insurance Name Policy Number Policy Hartmann Covered Member ID Hartmann Member ID Guarantor Name 11/25/2024 1 [facility] (MEDICAID REPLACEMENT - HMO) [id number] Saul Bello [id number] Saul Bello
--- OUTSIDE RECORDS SUMMARY | 2024-12-28 10:23 | XMS_ITS | Clinical Summary ---
Author Organization [facility] Address [address] [facility] [place] [address] Phone Care Team Providers Care Chief Deputy Court Clerk Name Role Phone Unavailable Primary Care Provider [...] Care Team (Late st Contact Info) Description 12/29/2024 1:45 PM EDT Office Visit Herbie Toth [address] [address] Tolu Aviles MD [address] [facility] [address] [place] [address] Health Maintenance Due Date Last Done Comments Annual Wellness Exam 1969 DTaP/TDaP/Td (1 - Tdap) 1985 Hepatitis B Vaccine (1 of 3 - 19+ 3-dose series) 1985 Cologuard 2011 Colon Cancer Screening 2011 Colonoscopy 2011 FIT 2011 Sigmoidoscopy 2011 Virtual Colonography 2011 Zoster (1 of 2) 2016 Pneumococcal Vaccine 50+ (2 of 2 - PCV) 12/20/2021 12/20/2020 COVID-19 Vaccine (1 - 2023-2 5 season) 2024 Influenza Vaccine (#1) 2025 Meningococcal B Vaccine Aged Out No l onger eligible based on patient's age to complete this topic Insurance MEDICAID [facility] MEDICAID [facility]
--- OUTSIDE RECORDS SUMMARY | 2024-12-28 10:23 | XMS_ITS | Data Portability ---
Author Organization [facility] Address [address] [place] [address] Assessment Encounter Date Assessment Date Assessment LastModified by Organization Details LastModified Time 11/25/2024 11/25/2024 -Medications were reviewed and any necessary updates and renewals were made, patient instructed to complete as prescribed. -The potential side effects of medications were discussed. -Counseling was done on care goals and ways to prevent future hospitalizatio ns. -Further treatment per orders listed below. [email or web address] Not available 11/25/2024 11:50:25 Plan of Treatment Reminders Order Date Submit Date Provider Last Modified By Organization Details Last Modified Time Details Appointments None recorded. Lab vitamin D, 25-hydroxy , total, serum 2023 024 LUNA PIER [facility], [address] [place], [address], 4 14:12:43 TSH + free T4, serum 2023 024 LUNA PIER [facility], [address] [place], [address], 4 14:12:40 rf (rheumatoi d factor), serum 2023 024 CHANDU [facility], [address], [place], [address], 4 14:12:42 roz-ba rr virus (ebv) IgG + IgM panel, serum 2023 024 CHANDU [facility], [address], [address], [place], [address], 4 14:12:42 ROOSEVELT (antinucle ar antibodies ) screen, serum 2023 CHANDU [facility], [address], [address], [place], [address], 4 14:12:45 sjogren antibody panel (ssa, ssb, ro, la), serum 2023 CHANDU [facility], [address], [address], [place], [address], 4 14:12:41 ESR (erythrocy te sedimentat ion rate), blood 2023 CHANDU [facility], [address], [address], [place], [address], 4 14:12:46 hepatic function panel, serum 2023 CHANDU [facility], [address], [address], [place], [address], 4 14:12:40 uric acid, serum or plasma 2023 CHANDU [facility], [address], [address], [place], [address], 4 14:12:45 ASO (antistrep tolysin O) Ab, quantitati ve, serum 2023 CHANDU [facility], [address], [address], [place], [address], 4 14:12:46 C reactive protein, QN, serum or plasma 2023 CHANDU [facility], [address], [address], [place], [address], 4 14:12:47 ccp (cyclic citrullina davon peptide) iga+igg, serum 2023 024 CHANDU [facility], [address], [address], [place], [address], 4 14:12:44 actin smooth muscle IgG Ab, quant, serum 2023 024 CHANDU [facility], [address], [address], [place], [address], 4 14:12:43 dsDNA Ab, serum 2023 024 CHANDU [facility], [address], [address], [place], [address], 4 14:12:44 HbA1c (hemoglobi n A1c), blood 2023 024 [facility], [address] [place] [address], [address], 4 08:22:07 vitamin B12 + folate, serum or blood 2023 024 [facility], [address] [place] [address], [address], 4 08:22:06 CBC w/ auto diff 2023 024 [facility], [address] [place] [address], [address], 4 08:22:05 glucose, fingerstic k, blood 2023 024 [facility], [address] [facility], [place], [address], 4 16:29:01 CMP, serum or plasma 2023 024 [facility], [address] [place] [address], [address], 4 08:22:06 inflammati on panel, serum or plasma 2023 024 CHANDU [facility], [address], [place], [address], 4 08:22:07 Referral orthopedic surgeon referral 2024 025 [facility], [address], [place], [address], 5 14:24:44 gastroente rologist referral 2024 025 luis Liz MD, [address] [place] [address] , [address], [place], [address], 5 13:47:27 orthopedic spine surgeon referral 2024 025 [email or web address], [address], [place], [address], 5 09:41:08 general surgeon referral 2023 024 [email or web address] Not available 4 08:02:23 ophthalmol ogist referral 2023 024 lee ann Linares MD, [address] [place], [address], 4 10:29:16 Procedures None recorded. Surgeries None recorded. Imaging CT, chest, w/o contrast 2024 026 luis [facility], [address] [place], [address], 5 13:10:47 MRI, cervical spine, w/o contrast 2024 025 LUNA PIER [facility], [address] [facility] [address], [address], [place], [address], 5 12:59:09 XR, chest, 2 view 2023 024 On license of [facility], [address] [place] [address] , [place], [address], 4 08:16:16 Medication Orders baclofen 5 mg tablet [address], [address], 5 05:02:05 clobetasol 0.05 % topical ointment 2023 024 [email or web address], [address] [place] [address], [address], 5 16:07:06 Patient TargetsNo targets recorded. Patient Instructions Encounter Date Encounter Id Patient Instructions Last Modified By Organization Details Last Modified Time 06/26/2023 [id number] CALL W CHANGES RTC OR ED IF [...] differential [email or web address] Not available 06/26/2023 16:30:38 07/14/2023 [id number] CALL W CHANGES RTC OR ED IF SYMPTOMS CHANGE OR WORSEN KEEP NEXT INTERVAL CHECKUP CONT CHRONIC MEDS PERSCRIBED CHRONIC ISSUES ARE STABLE DISCUSSED NATURAL AND EXPECTED COURSE OF THIS DIAGNOSIS AND NEED TO ALERT ME IF SYMPTOMS DO NOT FOLLOW EXPECTED COURSE, OR IF ANY WORSEN follow up after labs are revd. [email or web address] Not available 07/14/2023 15:31:47 09/13/2024 [id number] Call with change s RTC or ED if symptoms change or worsen Keep next interval checkup Cont. chronic meds as prescribed Chronic conditions are stable Discussed natural and expected course of this diagnosis and need to alert me if symptoms do not follow expected course or if any worsens [email or web address] Not available 09/13/2024 16:35:53 09/27/2024 [id number] Call with change s RTC or ED if symptoms change or worsen Keep next interval checkup Cont. chronic meds as prescribed Chronic conditions are stable Discussed natural and expected course of this diagnosis and need to alert me if symptoms do not follow expected course or if any worsens [email or web address] Not available 09/27/2024 16:16:44 11/25/2024 [id number] smoking and tobacco use cessation counseling* [email or web address] Not available 11/25/2024 13:39:02 Call with change s RTC or ED if symptoms change or worsen Keep next interval check-up Cont. chronic meds as prescribed Chronic conditions are stable Discussed natural and expected course of this diagnosis and need to alert me if symptoms do not follow expected course or if any worsens [email or web address] Not available 11/25/2024 12:13:01 Reason for Referral Building Analyst/Supervisor Referral for Disorder of vision Referring Physician: Lasha Ramirez [facility], Encounter Date: 06/26/2023 General Surgeon Referral for Skin lesion Referring Physician: Iain Momin [facility], Encounter Date: 07/14/2023 Orthopedic Spine Surgeon Ref erral for Degeneration of cervical intervertebral disc Referring Physician: Suzanne Chavez [facility], Encounter Date: 09/27/2024 Art Instructor Referral for Disorder of esophagus Referring Physician: Suzanne Chavez [facility], Encounter Date: 11/25/2024 Orthopedic Surgeon Referral for Closed fracture sacrum Referring Physician: Suzanne Chavez [facility], Encounter Date: 11/25/2024 Results Created Date Observation Date Name Description Value Unit Range Abnormal Flag Note LastModifiedBy Organization Detail LastModifiedTime 06/26/19 24 06/27/2023 CBC WITH DIFFE RENTI AL/PL ATELE T WBC 8.7 x10e3 /uL 3.4-10 .8 Not Available [facility] ([facility]) [address] [facility], [place], [address], 06/27/2023 08:22:05 06/26/19 24 06/27/2023 CBC WITH DIFFE RENTI AL/PL ATELE T RBC 4.79 x10e6 /uL 4.14-5 .80 Not Available [facility] ([facility]) [address] [facility], [place], [address], 06/27/2023 08:22:05 06/26/19 24 06/27/2023 CBC WITH DIFFE RENTI AL/PL ATELE T hemoglobin 13.3 g/dL 13.0-1 7.7 Not Available [facility] ([facility]) [address] [facility], [place], [address], 06/27/2023 08:22:05 06/26/19 24 06/27/2023 CBC WITH DIFFE RENTI AL/PL ATELE T hematocrit 39.4 % 37.5-5 1.0 Not Available [facility] ([facility]) [address] [facility], [place], [address], 06/27/2023 08:22:05 06/26/19 24 06/27/2023 CBC WITH DIFFE RENTI AL/PL ATELE T MCV 82 fL 79-97 Not Available [facility] ([facility]) [address] [place], [address], 06/27/2023 08:22:05 06/26/19 24 06/27/2023 CBC WITH DIFFE RENTI AL/PL ATELE T MCH 27.8 pg 26.6-3 3.0 Not Available [facility] ([facility]) [address] [place], [address], 06/27/2023 08:22:05 06/26/19 24 06/27/2023 CBC WITH DIFFE RENTI AL/PL ATELE T MCHC 33.8 g/dL 31.5-3 5.7 Not Available [facility] ([facility]) [address] [facility], [place], [address], 06/27/2023 08:22:05 06/26/19 24 06/27/2023 CBC WITH DIFFE RENTI AL/PL ATELE T RDW 13.4 % 11.6-1 5.4 Not Available [facility] ([facility]) [address] [facility], [place], [address], 06/27/2023 08:22:05 06/26/19 24 06/27/2023 CBC WITH DIFFE RENTI AL/PL ATELE T platelets 283 x10e3 /uL 150-45 0 Not Available [facility] ([facility]) [address] [facility], [place], [address], 06/27/2023 08:22:05 06/26/19 24 06/27/2023 CBC WITH DIFFE RENTI AL/PL ATELE T neutrophils 72 % not estab. Not Available [facility] ([facility]) [address] [facility], [place], [address], 06/27/2023 08:22:05 06/26/19 24 06/27/2023 CBC WITH DIFFE RENTI AL/PL ATELE T lymphs 22 % not estab. Not Available [facility] ([facility]) [address] [facility], [place], [address], 06/27/2023 08:22:05 06/26/19 24 06/27/2023 CBC WITH DIFFE RENTI AL/PL ATELE T monocytes 4 % not estab. Not Available [facility] ([facility]) [address] [facility], [place], [address], 06/27/2023 08:22:05 06/26/19 24 06/27/2023 CBC WITH DIFFE RENTI AL/PL ATELE T eos 2 % not estab. Not Available [facility] ([facility]) [address] [facility], [place], [address], 06/27/2023 08:22:05 06/26/19 24 06/27/2023 CBC WITH DIFFE RENTI AL/PL ATELE T basos 0 % not estab. Not Available [facility] ([facility]) [address] [facility], [place], [address], 06/27/2023 08:22:05 06/26/19 24 06/27/2023 CBC WITH DIFFE RENTI AL/PL ATELE T immature cells BARREL AND RECEIVER ALIGNER Not Available [facility] ([facility]) [address] [place], [address], 06/27/2023 08:22:05 06/26/19 24 06/27/2023 CBC WITH DIFFE RENTI AL/PL ATELE T neutrophils (absolute) 6.2 x10e3 /uL 1.4-7. 0 Not Available [facility] ([facility]) [address] [place], [address], 06/27/2023 08:22:05 06/26/19 24 06/27/2023 CBC WITH DIFFE RENTI AL/PL ATELE T lymphs (absolute) 1.9 x10e3 /uL 0.7-3. 1 Not Available [facility] ([facility]) [address] [place], [address], 06/27/2023 08:22:05 06/26/19 24 06/27/2023 CBC WITH DIFFE RENTI AL/PL ATELE T monocytes(ab solute) 0.4 x10e3 /uL 0.1-0. 9 Not Available [facility] ([facility]) [address] [place], [address], 06/27/2023 08:22:05 06/26/19 24 06/27/2023 CBC WITH DIFFE RENTI AL/PL ATELE T eos (absolute) 0.2 x10e3 /uL 0.0-0. 4 Not Available [facility] ([facility]) [address] [place], [address], 06/27/2023 08:22:05 06/26/19 24 06/27/2023 CBC WITH DIFFE RENTI AL/PL ATELE T baso (absolute) 0.0 x10e3 /uL 0.0-0. 2 Not Available [facility] ([facility]) [address] [place], [address], 06/27/2023 08:22:05 06/26/19 24 06/27/2023 CBC WITH DIFFE RENTI AL/PL ATELE T immature granulocytes 0 % not estab. Not Available [facility] ([facility]) [address] [facility], [place], [address], 06/27/2023 08:22:05 06/26/19 24 06/27/2023 CBC WITH DIFFE RENTI AL/PL ATELE T immature grans (abs) 0.0 x10e3 /uL 0.0-0. 1 Not Available [facility] ([facility]) [address] [facility], [place], [address], 06/27/2023 08:22:05 06/26/19 24 06/27/2023 CBC WITH DIFFE RENTI AL/PL ATELE T NRBC BARREL AND RECEIVER ALIGNER Not Available [facility] ([facility]) [address] [facility], [place], [address], 06/27/2023 08:22:05 06/26/19 24 06/27/2023 CBC WITH DIFFE RENTI AL/PL ATELE T hematology comments: BARREL AND RECEIVER ALIGNER Not Available [facility] ([facility]) [address] [facility], [place], [address], 06/27/2023 08:22:05 06/26/19 24 06/27/2023 COMP. METAB OLIC PANEL (14) glucose 107 mg/dL 70-99 above high normal Not Available [facility] ([facility]) [address] [facility], [place], [address], 06/27/2023 08:22:05 06/26/19 24 06/27/2023 COMP. METAB OLIC PANEL (14) BUN 13 mg/dL 6-24 Not Available [facility] ([facility]) [address] [facility], [place], [address], 06/27/2023 08:22:05 06/26/19 24 06/27/2023 COMP. METAB OLIC PANEL (14) creatinine 0.83 mg/dL 0.76-1 .27 Not Available [facility] ([facility]) [address] [facility], [place], [address], 06/27/2023 08:22:05 06/26/19 24 06/27/2023 COMP. METAB OLIC PANEL (14) eGFR 103 mL/mi n/1.7 3 >59 Not Available [facility] ([facility]) [address] [facility], [place], [address], 06/27/2023 08:22:05 06/26/19 24 06/27/2023 COMP. METAB OLIC PANEL (14) BUN/creatini ne ratio 16 9-20 Not Available [facility] ([facility]) [address] [facility], [place], [address], 06/27/2023 08:22:05 06/26/19 24 06/27/2023 COMP. METAB OLIC PANEL (14) sodium 139 mmol/ L 134-14 4 Not Available [facility] ([facility]) [address] [place], [address], 06/27/2023 08:22:05 06/26/19 24 06/27/2023 COMP. METAB OLIC PANEL (14) potassium 4.4 mmol/ L 3.5-5. 2 Not Available [facility] ([facility]) [address] [place], [address], 06/27/2023 08:22:05 06/26/19 24 06/27/2023 COMP. METAB OLIC PANEL (14) chloride 104 mmol/ L 96-106 Not Available [facility] ([facility]) [address] [place], [address], 06/27/2023 08:22:05 06/26/19 24 06/27/2023 COMP. METAB OLIC PANEL (14) carbon dioxide, total 21 mmol/ L 20-29 Not Available [facility] ([facility]) [address], [place], [address], 06/27/2023 08:22:05 06/26/19 24 06/27/2023 COMP. METAB OLIC PANEL (14) calcium 9.3 mg/dL 8.7-10 .2 Not Available [facility] ([facility]) [address] [place], [address], 06/27/2023 08:22:05 06/26/19 24 06/27/2023 COMP. METAB OLIC PANEL (14) protein, total 6.3 g/dL 6.0-8. 5 Not Available [facility] ([facility]) [address] [place], [address], 06/27/2023 08:22:05 06/26/19 24 06/27/2023 COMP. METAB OLIC PANEL (14) albumin 4.3 g/dL 3.8-4. 9 Not Available [facility] ([facility]) [address] [place], [address], 06/27/2023 08:22:05 06/26/19 24 06/27/2023 COMP. METAB OLIC PANEL (14) globulin, total 2.0 g/dL 1.5-4. 5 Not Available [facility] ([facility]) [address] [place], [address], 06/27/2023 08:22:05 06/26/19 24 06/27/2023 COMP. METAB OLIC PANEL (14) A/G ratio 2.2 1.2-2. 2 Not Available [facility] ([facility]) [address] [place], [address], 06/27/2023 08:22:05 06/26/19 24 06/27/2023 COMP. METAB OLIC PANEL (14) bilirubin, total <0.2 mg/dL 0.0-1. 2 Not Available [facility] ([facility]) [address] [place], [address], 06/27/2023 08:22:05 06/26/19 24 06/27/2023 COMP. METAB OLIC PANEL (14) alkaline phosphatase 92 IU/L 44-121 Not Available [facility] ([facility]) [address] [place] [place], [address], 06/27/2023 08:22:05 06/26/19 24 06/27/2023 COMP. METAB OLIC PANEL (14) AST (SGOT) 16 IU/L 0-40 Not Available [facility] ([facility]) [address] [place], [address], 06/27/2023 08:22:05 06/26/19 24 06/27/2023 COMP. METAB OLIC PANEL (14) ALT (SGPT) 11 IU/L 0-44 Not Available [facility] ([facility]) [address] [facility], [place], [address], 06/27/2023 08:22:05 06/26/19 24 06/27/2023 VITAM IN B12 AND FOLAT E vitamin B12 625 pg/mL 232-12 45 Not Available [facility] ([facility]) [address] [place], [address], 06/27/2023 08:22:06 06/26/19 24 06/27/2023 VITAM IN B12 AND FOLAT E folate (folic acid), serum 7.4 NG/mL >3.0 A serum folat e george ntrat ion of less than 3.1 ng/mL is consi dered to repre sent clini cory defic iency . Not Available [facility] ([facility]) [address] [facility], [place], [address], 06/27/2023 08:22:06 06/26/19 24 06/27/2023 ESR-W ES+CR P sedimentatio n rate-westerg carla 17 mm/HR 0-30 Not Available [facility] ([facility]) [address] [place], [address], 06/27/2023 08:22:07 06/26/19 24 06/27/2023 ESR-W ES+CR P C-reactive protein, quant 4 mg/L 0-10 Not Available [facility] ([facility]) [address] [place], [address], 06/27/2023 08:22:07 06/26/19 24 06/27/2023 HEMOG LOBIN A1C hemoglobin A1C 5.7 % 4.8-5. 6 above high normal Predi abete s: 5.7 - 6.4 Diabe bijal: >6.4 Glyce delma contr ol for adult s with diabe bijal: <7.0 Not Available [facility] ([facility]) [address] [place], [address], 06/27/2023 08:22:07 06/26/19 24 06/26/2023 gluco se, finge rstic k, blood Blood Glucose: mg/dl 130 Not Available [address], [address], 06/26/2023 16:20:08 06/26/19 24 06/26/2023 gluco se, finge rstic k, blood Reference Range (60-100) abnorm al Not Available [address], [address], 06/26/2023 16:20:08 07/14/19 24 07/15/2023 TSH+F REE T4 TSH 4.080 uIU/m L 0.450- 4.500 Not Available [facility] ([facility]) [address] [place], [address], 07/15/2023 14:12:40 07/14/19 24 07/15/2023 TSH+F REE T4 T4,free(dire ct) 1.12 NG/dL 0.82-1 .77 Not Available [facility] ([facility]) [address] [place], [address], 07/15/2023 14:12:40 07/14/19 24 07/15/2023 HEPAT IC FUNCT ION PANEL (7) protein, total 6.5 g/dL 6.0-8. 5 Not Available [facility] ([facility]) [address] [place], [address], 07/15/2023 14:12:40 07/14/19 24 07/15/2023 HEPAT IC FUNCT ION PANEL (7) albumin 4.3 g/dL 3.8-4. 9 Not Available [facility] ([facility]) [address] [place], [address], 07/15/2023 14:12:40 07/14/19 24 07/15/2023 HEPAT IC FUNCT ION PANEL (7) bilirubin, total <0.2 mg/dL 0.0-1. 2 Not Available [facility] ([facility]) [address] [place], [address], 07/15/2023 14:12:40 07/14/19 24 07/15/2023 HEPAT IC FUNCT ION PANEL (7) bilirubin, direct <0.10 mg/dL 0.00-0 .40 Not Available [facility] ([facility]) [address] [place], [address], 07/15/2023 14:12:40 07/14/19 24 07/15/2023 HEPAT IC FUNCT ION PANEL (7) alkaline phosphatase 99 IU/L 44-121 Not Available [facility] ([facility]) [address] [place], [address], 07/15/2023 14:12:40 07/14/19 24 07/15/2023 HEPAT IC FUNCT ION PANEL (7) AST (SGOT) 13 IU/L 0-40 Not Available [facility] ([facility]) [address] [place], [address], 07/15/2023 14:12:40 07/14/19 24 07/15/2023 HEPAT IC FUNCT ION PANEL (7) ALT (SGPT) 10 IU/L 0-44 Not Available [facility] ([facility]) [address] [place], [address], 07/15/2023 14:12:40 07/14/19 24 07/15/2023 SJOGR EN'S AB, ANTI- SS-A/ -SS-B sjogren's anti-ss-A <0.2 ai 0.0-0. 9 Not Available [facility] ([facility]) [address] [place], [address], 07/15/2023 14:12:41 07/14/19 24 07/15/2023 SJOGR EN'S AB, ANTI- SS-A/ -SS-B sjogren's anti-ss-B <0.2 ai 0.0-0. 9 Not Available [facility] ([facility]) [address] [place], [address], 07/15/2023 14:12:41 07/14/19 24 07/15/2023 EBVCA (IGG/ M) ebv Ab vca, IgM <36.0 U/mL 0.0-35 .9 Negat kristen <36.0 Equiv ocal 36.0 - 43.9 Posit kristen >43.9 Not Available [facility] ([facility]) [address] [place], [address], 07/15/2023 14:12:41 07/14/19 24 07/15/2023 EBVCA (IGG/ M) ebv Ab vca, IgG 145.0 U/mL 0.0-17 .9 above high normal Negat kristen <18.0 Equiv ocal 18.0 - 21.9 Posit kristen >21.9 Not Available [facility] ([facility]) [address] [facility], [place], [address], 07/15/2023 14:12:41 07/14/19 24 07/15/2023 RHEUM ATOID FACTO R (RF) rheumatoid factor (rf) 10.9 IU/mL <14.0 Not Available [facility] ([facility]) [address] [facility], [place], [address], 07/15/2023 14:12:42 07/14/19 24 07/15/2023 ACTIN (SMOO TH MUSCL E) ANTIB CINTHIA [...] bilia ry cirrh osis. Not Available [facility] ([facility]) [address] [facility], [place], [address], 07/15/2023 14:12:43 07/14/19 24 07/15/2023 VITAM IN [...] IOM (Inst itute of Medic ine). 2010. Dieta ry refer ence intak es for calci um and D. Josue willams [place]: The [facility] Press . 2. Jocelyn kohli [place], Therese littlejohn [place], Mason off-F errar i VALENCIA, et al. Evalu ation , treat ment, and preve ntion of vitam in D defic iency : an Endoc rine Socie ty clini cory pract ice guide line. JCEM. 2010; 96(7) :1911 -30. Not Available [facility] ([facility]) [address] [facility], [place], [address], 07/15/2023 14:12:43 07/14/19 24 07/15/2023 ANTI- DSDNA ANTIB ODIES anti-DNA (ds) Ab qn 1 IU/mL 0-9 Negat kristen <5 Equiv ocal 5 - 9 Posit kristen >9 Not Available [facility] ([facility]) [address] [facility], [place], [address], 07/15/2023 14:12:44 07/14/19 24 07/15/2023 ANTI- CCP AB, IGG/I GA anti-ccp Ab, IgG/IgA 17 units 0-19 Negat kristen <20 Weak posit kristen 20 - 39 Moder ate posit kristen 40 - 59 Stron g posit kristen >59 Not Available [facility] ([facility]) [address] [facility], [place], [address], 07/15/2023 14:12:44 07/14/19 24 07/15/2023 URIC ACID uric acid 4.8 mg/dL 3.8-8. 4 Thera rupali c jannie t for gout patie nts: <6.0 Not Available [facility] ([facility]) [address] [facility], [place], [address], 07/15/2023 14:12:45 07/14/19 24 07/15/2023 ANTIN UCLEA R AB MULTI PLEX RFX 9 ROOSEVELT direct Negati ve negati ve Not Available [facility] ([facility]) [address] [place], [address], 07/15/2023 14:12:45 07/14/19 24 07/15/2023 SEDIM ENTAT ION RATE- WESTE RGREN sedimentatio n rate-westerg carla 7 mm/HR 0-30 Not Available [facility] ([facility]) [address] [facility], [place], [address], 07/15/2023 14:12:46 07/14/19 24 07/15/2023 ANTIS TREPT OLYSI N O AB antistreptol ysin O Ab 132.0 IU/mL 0.0-20 0.0 Not Available [facility] ([facility]) [address] [facility], [place], [address], 07/15/2023 14:12:46 07/14/19 24 07/15/2023 C-ANGELO CTIVE PROTE IN, QUANT C-reactive protein, quant 2 mg/L 0-10 Not Available [facility] ([facility]) [address] [facility], [place], [address], 07/15/2023 14:12:47 06/27/19 24 XR, chest , 2 view No observ ation record ed. [address] , [place], [address], 2023 13:45:25 07/04/19 24 LDCT, chest , for lung cance r scree stephanie No observ ation record ed. [email or web address] [address], [place], [address], 07/09/2023 13:02:26 07/11/19 25 07/11/2024 XR, ankle , 3 or more view No observ ation record ed. [email or web address] [facility] [address] [facility], [place], [address], 07/12/2024 12:52:16 07/11/19 25 07/11/2024 XR, ankle , 3 or more view No observ ation record ed. [email or web address] [facility] [address], [place], [place], [address], 07/12/2024 13:27:00 09/14/19 25 09/13/2024 CT, cervi cory spine , w/o contr ast No observ ation record ed. [id number] [facility]) [address] [place], [address], 09/16/2024 09:55:22 10/13/19 25 10/12/2024 XR, tibia + fibul a, 2 view No observ ation record ed. [email or web address] [facility] [address], [place], [address], 10/13/2024 09:20:53 10/16/19 25 10/12/2024 MRI, cervi cory spine , w/o contr ast No observ ation record ed. [email or web address] [facility] [address], [place], [address], 10/18/2024 10:26:03 11/24/19 25 11/23/2024 CT, pelvi s, w/o contr ast No observ ation record ed. [place] [id number], [place], [address], 11/26/2024 11:37:47 11/24/19 25 11/23/2024 CT, chest , w/o contr ast No observ ation record ed. [address], [place], [address], 11/26/2024 11:38:13 11/24/19 25 11/23/2024 CT, thora cic spine , w/o contr ast No observ ation record ed. [place] [id number], [place], [address], 11/26/2024 11:38:23 11/24/19 25 11/23/2024 CT, lumba r spine , w/o contr ast No observ ation record ed. [email or web address] [facility] [address], [place], [address], 11/26/2024 11:38:44 11/24/19 25 11/23/2024 XR, tibia + fibul a, 2 view No observ ation record ed. [email or web address] [facility] [address], [place], [address], 11/24/2024 10:49:32 11/24/19 25 11/23/2024 XR, tibia + fibul a, 2 view No observ ation record ed. [email or web address] [facility] [address], [place], [address], 11/24/2024 10:49:32 11/24/19 25 11/23/2024 XR, shoul [place] No observ ation record ed. [facility] [address], [place], [address], 11/26/2024 11:39:02 Result Notes None recorded. Problems Name Problem SNOMED Code Status Onset Date Resolution Date Notes Provider Name and Address Organization Details Recorded Time Gastroesophag eal reflux disease 504341124 Active Leyla Anjelica null, [place] - [facility] 7 16:32:51 Pain in left knee Active Leyla Anjelica null, [place] - [facility] 7 15:42:47 Low back pain 553817305 Active 2022 Suzanne Chavez PA-C [address], [place], [address] , [place] - [facility] 3 08:16:54 Neck pain 60226335 Active 2024 Suzanne Chavez PA-C [address], [place], [address] , [place] - [facility] 5 16:18:10 Degeneration of cervical intervertebra l disc 07137308 Active 2024 SARTHAK MorrowC [address], [place], [address] , [place] - [facility] 5 16:02:25 Closed fracture sacrum 661446242 Active 2024 Suzanne Chavez PA-C [address], [place], [address] , [place] - [facility] 5 07:59:06 Closed fracture of pubic ramus Active 2024 Suzanne Chavez PA-C [address], [place], [address] , [place] - [facility] 5 07:59:47 Chronic obstructive pulmonary disease 68764205 Active 2024 Suzanne Chavez PA-C [address], [place], [address] , [place] - [facility] 5 08:01:44 Nodule of lung 253272400 Active 2024 Suzanne Chavez PA-C [address], [place], [address] , [place] - [facility] 5 08:01:51 Disorder of esophagus 32521045 Active 2024 Suzanne Chavez PA-C [address], [place], [address] , [place] - [facility] 5 08:04:11 Problem Notes [...] Name and Address Organization Details Recorded Time 67476 codeine phosphate medicatio n Not available Not available Not available 03/08/20162009 2672 RxNorm Not Available [facility] 6 10:07:36 65577 codeine sulfate medicatio n Not available Not available Not available 03/08/20162009 98233 RxNorm Not Available [facility] 6 10:07:37 Medications Name Sig Start [...] Disconti nued on: 07/24/19 11 1:16PM;U ser: Nell st. Completi on: 07/29/19 11 Not Available [...] nued on: 01/10/20 15 12:59PM; User: mitul;Yesy correia Completkennedy on: 06/12/19 15;Pharm [place] ied: 06/07/19 15 [...] Disconti nued on: 08/21/19 13 4:35PM;U ser: jamal Zelaya on: 06/18/19 13;Print ed: 06/08/19 13 Not [...] Completi on: 11/25/19 11;Indic ation: Pain - (30.5321 43) Not Available Not Available Not Available Nexium 20 mg capsule,d elayed release take 1 capsule (20 mg) by oral route once daily at least 1 hour before a meal swallowi ng whole. Do not crush or chew granules . for 30 days 03/25 completed Nexium 20 mg oral capsule, delayed release( DR/EC);P rescribe Status: Prescrib ed on: 09/10/19 14 [...] Completi on: 06/17/19 15;Indic ation: Cough - (20.5935 20);Phar Trupti fied: 06/07/19 15 12:20PM Not Available [...] nued on: 03/25/20 14 4:31PM;U ser: gored;Yesy t. Completi on: 09/20/19 14;Pharm acyVsanta ied: 09/10/19 14 3:26PM Not Available Not [...] ser: [email or web address] ;Est. Completi on: 02/04/20 16;Pharm acyVerishawna ied: 01/25/20 16 8:57AM Not Available Not Available Not Available Zovirax 5 % topical ointment apply to the affected area(s) by topical route every 3 hours 6 times per day for 7 days 11/04/ 2010 02/03 /2011 completed Zovirax 5 % topical ointment ;Recorde [...] nued on: 08/21/19 13 4:35PM;U ser: jie Est. Completi on: 07/30/19 13;Indic ation: sinus [...] Disconti nued on: 06/08/19 13 4:10PM;U ser: jie Est. Completi on: 05/19/20 12;Indic ation: diarr [...] blood by Pulse oximetry Respiratory rate Systolic And Diastolic Provider Name and Address Organization Details Last Updated DateTime 4 180.34 cm 23.7 kg/m2 92569.7 g 97.7 [degF] 93 /min 96 % 96 % 16 /min 120/78 mm[Hg] Asif Mon [place] - [facility] 4 16:08:58 Date Recorded Body height Pain severity - 0-10 verbal numeric rating [Score] - Reported Respiratory rate Provider Name and Address Organization Details Last Updated DateTime 07/03/2023 180.34 cm 0 14 /min Qing Harris [facility] 07/03/2023 15:11:17 Date Recorded Body height Respiratory rate Pain severity - 0-10 verbal numeric rating [Score] - Reported Body temperature Heart rate Oxygen saturation Oxygen saturation in Arterial blood by Pulse oximetry Systolic And Diastolic Provider Name and Address Organization Details Last Updated DateTime 4 180.34 cm 14 /min 0 97.5 [degF] 65 /min 95 % 95 % 108/62 mm[Hg] Qing Harris [facility] 4 15:16:53 Date Recorded Respiratory rate Pain severity - 0-10 verbal numeric rating [Score] - Reported Body temperature Oxygen saturation Oxygen saturation in Arterial blood by Pulse oximetry Heart rate Systolic And Diastolic Provider Name and Address Organization Details Last Updated DateTime 5 14 /min 8 99.3 [degF] 96 % 96 % 96 /min 124/68 mm[Hg] Qing Harris [facility] 5 16:08:18 Date Recorded Respiratory rate Body weight Body temperature Heart rate Oxygen saturation Oxygen saturation in Arterial blood by Pulse oximetry Pain severity - 0-10 verbal numeric rating [Score] - Reported Systolic And Diastolic Provider Name and Address Organization Details Last Updated DateTime 5 14 /min 26731.1 5 g 98.2 [degF] 86 /min 98 % 98 % 6 118/84 mm[Hg] Susan Marte [facility] 5 15:29:34 Date Recorded Respiratory rate Body temperature Body weight Heart rate Oxygen saturation Oxygen saturation in Arterial blood by Pulse oximetry Pain severity - 0-10 verbal numeric rating [Score] - Reported Systolic And Diastolic Provider Name and Address Organization Details Last Updated DateTime 5 14 /min 98.6 [degF] 03106.3 3 g 87 /min 96 % 96 % 10 126/82 mm[Hg] Susan Marte [facility] 5 11:56:26 Social History Question Answer Notes LastModified by Organizat ion Details LastModified Time Tobacco Smoking Status Current Every Day Smoker Nacho padron [facility] 03/28/2016 08:49:15 Able To Swim? Yes Information [...] COVID-19 While That Case Was Ill? No [email or web address] Information n ot available 12/20/2022 In The 14 Days Before Symptom Onset, Have You Had Close Contact With A Person Who Is Under Investigation For COVID-19 While That Person Was Ill? No [email or web address] Information not available 12/20/2022 Have You Been To An Area Known To Be High Risk For COVID-19? No [email or web address] Information not available 12/20/2022 Are You Deaf Or Do You Have Serious Difficulty Hearing? No Information not available 08/21/2016 What Type Of Diet Are You Following? REGULAR Information n ot available 08/21/2016 Have You Processed Blood Or Body Fluids From An Ebola Virus Disease Patient Without Appropriate PPE? No [email or web address] Information not available 12/20/2022 Do You Reside In Or Have You Traveled To An Area Where Ebola Virus Transmission Is Active? No [email or web address] Information not available 12/20/2022 Swimming/diving Yes Informati on not available 08/21/2016 Hard Of Hearing Or Deaf In One Or Both Ears? No Information not available 08/21/2016 Have You Recently Or Are You Planning To Travel To An Area With Zika Virus? No [email or web address] Information not available 12/20/2022 Legally Blind In One Or Both Eyes? No Information no t available 08/21/2016 Live Alone Or With Others? With Others Information not available 08/21/2016 What Was The Date Of Your Most Recent Tobacco Screening? 11/25/2024 [email or web address] Information not available 11/25/2024 How Many Children Do You Have? 1 Information not available 08/21/2016 What Is Your Current Pack Years? [email or web address] Information not available 12/20/2022 What Is Your Relationship Status? Single Information not available 08/21/2016 Seat Belts Used Routinely Yes Information not available 08/21/2016 Smoke Alarm In Home Yes Information not available 08/21/2016 At What Age Did You Start Smoking Tobacco? 18 Information not available 12/20/2022 Are You Passively Exposed To Smoke? Yes Information no t available 08/21/2016 How Much Tobacco Do You Smoke? 1 PPD [email or web address] Information not available 03/28/2016 General Stress Level High Information not available 08/21/2016 Has Tobacco Cessation Counseling Been Provided? Yes [email or web address] Information not available 12/20/2022 On What Date Was Tobacco Cessation Counseling Provided? 11/25/2024 [email or web address] Information not available 11/25/2024 How Many Years Have You Smoked Tobacco? 30 [email or web address] Information not available 12/20/2022 Do You Have Difficulty Walking Or Climbing Stairs? No Information not available 08/21/2016 Sex: Male Functional Status Question Answer Note LastModified by Organizat ion Details LastModified Time How many times per week do you consume alcohol? Less than 1 time per week [email or web address] Information not available 12/20/2022 Do you use any illicit or recreational drugs? No [email or web address] Information not available 12/20/2022 Do you or have you ever used any other forms of tobacco or nicotine? No [email or web address] Information not available 12/20/2022 What is your [...] colitis N Cerebrovascular Disease N Depression N Guillain-[place] N Sleep Apnea N Aneurysm N Bronchitis N Heart Disease N Suicidal Ideation N Pre-Eclampsia N Hypertension N Osteoporosis N Immunizations Vaccine Type Date Status Note Provider Nam e and Address Organization Details Recorded Time pneumococcal polysaccharide PPV23 completed [place] - [facility] 12/20/2020 17:05:38 Past Encounters Encounter ID Performer Location Encounter Start Date Encounter Closed Date Diagnosis/Indication Diagnosis SNOMED-CT Code Diagnosis ICD10 Code Diagnosis Note [id number] Luciana Eduardo APRN [address] [place] [address] 03/28/2016 08:37:38 03/28/2016 09:11:45 Hepatitis C antibody detected 668148656 Z86.19 Screening for malignant neoplasm of colon 268798441 Z12.11 Allergic rhinitis 335530 04 J30.9 [id number] Yolanda Leos APRN [address] [place] [address] 08/21/2016 16:02:47 08/21/2016 16:57:57 Gastroesophageal reflux disease 565514945 K21.9 [id number] Yolanda Leos APRN [address] [place] [address] 08/27/2016 13:35:50 08/27/2016 13:55:22 Knee pain 43052468 M25.355 [id number] Yolanda Leos APRN [address] [place] [address] 11/12/2016 15:30:23 11/12/2016 15:47:24 Knee pain 33398264 M25.183 [id number] Mary Beth Walters MD [place] [address] [facility] [address] [place] [address] 03/31/2018 15:34:24 03/31/2018 16:31:51 Guillermo 423275465 L71.9 [id number] Carol Gipson MD [place] [address] [facility] [address] [place] [address] 12/20/2020 16:04:47 12/20/2020 17:22:36 Pain of shoulder region 38013100 M25.519 Get XRS and MRI of right shoulder. Get labs. Take naproxen as prescribed with food. See us back or go to ER) right away should gets worse or develops any new symptoms or complaints . Follow up with us in about one week. Hyperlipid emia screening 245236856 Z13.220 Screening for malignant neoplasm of prostate 155517487 Z12.5 Immunization advised 310 646188 Z71.9 He will think about COVID and Flu vaccines and get them at an outside pharmacy once decides to do that. Tells me he has Tdap within last 10 years- get records. He will also be getting Shingrix vaccine at outside pharmacy. Screening for malignant neoplasm of colon 154958016 Z12.11 Tells me he had COLONOSCOP Y [...] edicines to help quit smoking cigarettes /tobacco [id number] TAYLER Owen [address] [address] 12/20/2022 10:23:02 12/20/2022 11:09:21 Pain of left knee joint 0267583686 41018 M25.562 Skin lesion 34302707 L98 .9 we will set up to see derm. Long-term drug therapy 721574939 Z79.899 chronic conditions are stable. Thoracic back pain 37613 8004 M54.6 Rib pain 572165607 R07.8 1 Spasm of back muscles 20 5981177 M62.533 [id number] Lasha Ramirez MD [place] [address] [address] 06/26/2023 15:58:40 06/26/2023 16:38:35 Malaise and fatigue 546803101 R53.81 Paresthesi a of upper limb 43035139 R20.2 Paresthesi a of lower extremity 443478565 R20.2 Taking med ication for chronic disease 5055021419 08825 Z76.89 Disorder of vision 20066 002 H53.9 Finger clubbing 39216377 R68.3 Hyperglycemia 77377862 R 73.9 [id number] Iain Momin PA-C [place] [address] [address] 07/14/2023 15:02:17 07/14/2023 15:43:06 Pain of multiple joints 29511358 M25.50 Disorder of bone 4840569 3 M89.9 Fissure in skin 67598095 R23.4 Skin lesion 25317318 L98 .9 [id number] TAYLER Morrow [address] [address] 09/13/2024 15:50:47 09/13/2024 16:24:45 Neck pain 18935524 M54.[address] here or [...] ER, He was going to go to [facility] [id number] TAYLER Morrow [address] [address] 09/27/2024 15:18:04 09/27/2024 16:12:19 Neck pain 09579337 M54.2 on goingwill try different muscle relaxer, cont naproxen Degenerati on of cervical intervertebral disc 69266411 M50.30 -[place] [id number] Suzanne Chavez PA-C [place] [facility] [place] [address] [place] [address] 11/25/2024 11:45:01 11/25/2024 13:10:46 Closed fracture sacrum 534126487 S32.10XD -[facility] sed getting in with ortho and Pt pending that, discussed cautions to return to ER.Pt would like a wheel chair as it is difficult for him to move around with the crutches a lot Closed fra cture of pubic ramus 3805024295 S32.591A Chronic ob structive pulmonary disease 12324239 J44.9 -noted on ct scandiscus sed PFTs after healing Nodule of lung 533707828 R91.1 pack a day x [address] in 1 year Disorder of esophagus 37 272272 K22.89 -New, noted on CT, possibly from esophagiti s but could not rule out other causes Health Concerns Section Related Observation LastModified by Organization Detai ls LastModified Time None Recorded Concern Status LastModified by Organization Details LastModified Time None Recorded Advance Directives Directive N: Payers Insurance Date Sequence Insurance Name Policy Number Policy Hartmann Covered Member ID Hartmann Member ID Guarantor Name 12/15/2024 1 [id number] Saul B [id number] Saul B Ace 12/15/2024 [id number] Saul B Ace [id number] Saul B Ace 07/12/2024 1 [place] [id number] Saul B Ace [id number] Saul B Ace 09/13/2024 1 [place] [id number] Saul B Ace [id number] Saul B Ace
--- OUTSIDE RECORDS SUMMARY | 2024-12-28 10:23 | XMS_ITS | Continuity of Care Document ---
Author Organization [place] - [facility] - [place] & [place] [facility] Address [address] [place] [address] Care Team Providers Care Bowl Topper Name Role Phone SOFIA DOBSON Primary Care Provider Unavail SUMYAA Bhagat Primary Care Provider Assessment No assessment recorded. Plan of Treatment Reminders Order Date Submit Date Provider Last Modified By Organization Details Last Modified Time Details Appointments POST OP FU 15 2024 12:30P M MIRELLA HENSON NP Not available Not available Not available Lab None recorded. Referral None recorded. Procedures esophagog astroduod enoscopy with biopsy (PROC) - PHYSICIAN ORDERS 1. Ensure patient is NPO. 0.9% normal saline @kvo preferabl y in right arm; IV patent to gravity. 3. verify consent. EGD with possible biopsy with possible dilation. 4. On-Call to Endoscopy . 5. Draw pt/inr if patient on Coumadin Hold 2024 025 CHANDU Molina (Outpatient Surgery), [address] [place] [address], [id number], 12/16/2024 09:22:20 Surgeries None recorded. Imaging None recorded. Medication Orders pantopraz ole 40 mg tablet,de layed release 2024 025 [facility], [address] [place] [address], [id number], 12/14/2024 15:01:28 Patient TargetsNo targets recorded. Patient InstructionsNo instructions recorded. Reason for Referral None Reported. Results Created Date Observation Date Name Description Value Unit Range Abnormal Flag Note LastModifiedBy Organization Detail LastModifiedTime 12/18/19 25 11/23/2024 CT, chest , w/o contr ast No observ ation record ed. [email or web address] Not Available 2024 09:33:29 12/18/19 25 11/23/2024 CT, pelvi s, w/o contr ast No observ ation record ed. [email or web address] Not Available 2024 09:35:17 Result Notes None recorded. Problems Name Problem SNOMED Code Status Onset Date Resolution Date Notes Provider Name and Address Organization Details Recorded Time Gastroesophage al reflux disease 340883676 Active Corina padron, KAYLA - [facility]NT [facility] & [place] 4 10:35:51 Low back pain 741482220 Active 2022 Corina padron, KAYLA - [facility]NT [facility] & [place] 4 10:35:51 Notes:Some problems listed i n Documents: #[id number], #[id number] could not be added to this patient's chart. Please review these documents and add these problems to the patient's chart manually as needed. Problem Notes None recorded. Procedures Surgical History Date Name Laterality Status Provider Name and Address Organization Details Recorded Time 4 Excision and closure completed John Tai MD [address] [place] [address],[address], [place], [address], [facility] & [place] 09/22/2023 11:22:57 4 Excision and closure completed John Tai MD [address] [place] [address],[address], [place], [address], [facility] & [place] 08/27/2023 12:07:23 operative procedure on shoulder [facility] & [place] 12/14/2024 14:20:39 Imaging Results None recorded. Procedure Notes None recorded. Medical Equipment None Reported. Allergies Allergen ID Allergen Name Allergen Category Reaction Reaction Severity Criticality Documentation Date Start Date Code Code System Note Provider Name and Address Organization Details Recorded Time 290606 codeine phosphate medicatio n Not available Not available Not available 08/27/20232009 2672 RxNorm CorinaKAYLA Durham [facility] & [place] 4 10:35:50 674079 codeine sulfate medicatio n Not available Not available Not available 08/27/20232009 62421 RxNorm KAYLA Umanzor [facility] & [place] 4 10:35:50 Medications Name Sig Start Date Stop Date Status Note LastModified by Organization Details LastModified Time amoxicillin 500 mg capsule TAKE ONE CAPSULE BY MOUTH THREE TIMES DAILY -- FINISH ALL MEDICINE -- 12/11 completed Not Available Not Available Not Available methocarbam ol 500 mg tablet TAKE 2 TABLETS BY MOUTH EVERY 8 HOURS NEEDED FOR MUSCLE SPASM active Not Available Not Available No t Available clindamycin HCl 300 mg capsule TAKE ONE CAPSULE BY MOUTH THREE TIMES DAILY FOR 10 DAYS -- FINISH ALL MEDICINE -- 06/26 completed Not Available Not Available Not Available etodolac 200 mg capsule TAKE ONE (1) CAPSULE TWICE A DAY BY ORAL ROUTE NEEDED FOR 14 DAYS. 12/14 completed Not Available Not Available Not Available [...] EVERY SIX (6) HOURS BY ORAL ROUTE. 12/14 completed Not Available Not Available Not Available Avelox [...] completed Not Available Not Available Not Available methocarbam ol 750 mg tablet TAKE 1 TABLET BY MOUTH THREE TIMES DAILY NEEDED 12/14 completed Not Available Not Available Not Available cephalexin 500 mg capsule TAKE 1 CAPSULE BY MOUTH EVERY 8 HOURS UNTIL GONE 12/12 completed Not Available Not Available Not Available pantoprazol e 40 mg tablet,berhane yed release TAKE ONE (1) TABLET BY MOUTH [...] BY TOPICAL ROUTE 2 TIMES PER DAY 12/14 completed Not Available Not Available Not Available ibuprofen 600 mg tablet TAKE 1 TABLET BY MOUTH EVERY 8 HOURS NEEDED FOR PAIN (ON A PAIN SCALE SCORE OF 4-6) active Not Available Not Available No t Available methylpredn isolone 4 mg tablets in a dose pack TAKE ACCORDING TO PACKAGE INSTRUCTI ONS --TAKE WITH FOOD-- -- FINISH ALL MEDICINE -- 12/14 completed Not Available Not Available Not Available [...] TAKE 1 TABLET BY MOUTH TWICE DAILY 12/14 completed Not Available Not Available Not Available [...] 7-10). PLEASE TAKE ONLY AFTER TYLENOL, ROBAXIN, IBUPROFEN HAVE NOT BEEN ENOUGH. 12/14 completed Not Available Not Available Not Available buprenorphi ne 8 mg-naloxone 2 mg sublingual tablet DISSOLVE 2 TABLETS UNDER THE TONGUE EVERY DAY active Not Available Not Available No t Available lactulose 10 gram/15 mL oral solution TAKE 15 ML BY MOUTH EVERY DAY active Not Available Not Available [...] BY ORAL ROUTE NEEDED FOR 10 DAYS. 12/14 completed Not Available Not Available Not Available Vitals Date Recorded Body height Body mass index (BMI) Body weight Respiratory rate Heart rate Oxygen saturation Oxygen saturation in Arterial blood by Pulse oximetry Body temperature Provider Name and Address Organization Details Last Updated DateTime 179.07 cm 24.1 kg/m2 89879.1 4 g 18 /min 88 /min 96 % 96 % 97.7 [degF] Ashia Shore KAYLA [facility] & [place] 14:15:27 Social History Question Answer Notes LastModified by Organizat ion Details LastModified Time Tobacco Smoking Status Current Every Day Smoker Ashia Shore [facility] [place] [facility] & [place] 12/14/2024 14:15:48 Do You Have An Advance Directive? No [email or web address] Information not available 12/14/2024 Are You Blind Or Do You Have Difficulty Seeing? Yes [email or web address] Information not available 12/14/2024 What Is Your Level Of Caffeine Consumption? Moderate [email or web address] Information not available 12/14/2024 What Type Of Diet Are You Following? REGULAR [email or web address] Information not available 12/14/2024 What Was The Date Of Your Most Recent Tobacco Screening? 08/27/2023 [email or web address] Information not available 12/14/2024 Are You Passively Exposed To Smoke? Yes [email or web address] Information not available 12/14/2024 How Much Tobacco Do You Smoke? 1 PPD [email or web address] Information not available 12/14/2024 How Many Years Have You Smoked Tobacco? 10 [email or web address] Information not available 12/14/2024 Sex: Male Functional Status Question Answer Note LastModified by Organizat ion Details LastModified Time Do you use any illicit or recreational drugs? No [email or web address] Information not available 12/14/2024 Do you or have you ever used any other forms of tobacco or nicotine? No [email or web address] Information not available 12/14/2024 What is your level of alcohol consumption? Occasional Information not available 12/14/2024 Do you or have you ever used smokeless tobacco? Never used smokeless tobacco [email or web address] Information not available 12/14/2024 What is your exercise level? Moderate [email or web address] Information not available 12/14/2024 Mental Status Question Answer Note LastModified by Organization D etails LastModified Time Do you feel stressed (tense, restless, nervous, or anxious, or unable to sleep at night)? [id number] [email or web address] Information not available 12/14/2024 Family History Relationship Description Onset Age of this Age Resolved Age Notes LastModified by Organization Details LastModified Time Father Rheumatoid arthritis pt. added direct ly (08/26) [email or web address] Not available 08/27/2023 10:29:46 Medical History Condition Response Vision or Eye Problems Y Arthritis Y Ear or Hearing Problems Y Back Problems Y Reflux/GERD Y Immunizations Vaccine Type Date Status Note Provider Nam e and Address Organization Details Recorded Time pneumococcal polysaccharide PPV23 1 completed KAYLA Umanzor - [place] & [place] 08/27/2023 10:35:51 Past Encounters Encounter ID Performer Location Encounter Start Date Encounter Closed Date Diagnosis/Indication Diagnosis SNOMED-CT Code Diagnosis ICD10 Code Diagnosis Note [id number] MIRELLA HENSON NP [facility] [address] [place] [address],[facility] [address] [place] [address] 12/14/2024 14:04:08 12/14/2024 15:08:08 Gastroesophageal reflux disease 252286447 K21.9 Disorder of esophagus 37 738318 K22.89 we will restart his PPI; Reviewed in detail how to take medication .Set up for EGD for further characteri zation of this concern.Co nsider reducing use of ibuprofen. Lifestyle modificati ons discussed with patient. Recommende d smoking cessation. Recommend cessation of all alcohol. Avoidance of trigger foods discussed. Follow-up in 4 weeks Health Concerns Section Related Observation LastModified by Organization Detai ls LastModified Time None Recorded Concern Status LastModified by Organization Details LastModified Time None Recorded Payers Encounter Date Sequence Insurance Name Policy Number Policy Hartmann Covered Member ID Hartmann Member ID Guarantor Name 12/14/2024 1 [facility] - [id number] Saul Bello [id number] Saul Bello
--- OUTSIDE RECORDS SUMMARY | 2024-12-28 10:23 | XMS_ITS | Data Portability ---
Author Organization [place] - [facility] Address [address] [place] [address] Care Team Providers Care Mechanic Senior Name Role Phone SOFIA DOBSON Primary Care Provider Unavail SUMAYA Bhagat Primary Care Provider Assessment No assessment [...] patient on Coumadin Hold 2024 025 CHANDU Jesse (Outpatient Surgery), [address] [place] [address] [place], [address], 12/16/2024 09:22:20 Surgeries None recorded. Imaging None recorded. Medication Orders pantopraz ole 40 mg tablet,de layed release [address], [address], 12/14/2024 15:01:28 hydrocodo ne 5 mg-acetam inophen 325 mg tablet 2023 [email or web address] [place] [address], [place], [address], 12/14/2024 14:17:33 Patient TargetsNo targets recorded. Patient Instructions Encounter Date Encounter Id Patient Instructions Last Modified By Organization Details Last Modified Time 08/27/2023 [id number] hydrocodone (oral) [email or web address] Not available 08/27/2023 14:05:39 10/08/2023 [id number] he is to follow up with Dr. Tai if any further treatment is necessary for the lesions on his knuckles [email or web address] Not available 10/08/2023 14:20:01 Patient seen by physician primary teaching assistant. I have reviewed the patient's medical record, [...] Details Recorded Time Gastroesophage al reflux disease 139277787 Active Corina padron KAYLA - [facility] - [place] & [place] 4 10:35:51 Low back pain 599226380 Active 2022 CorinaKAYLA Durham - [facility] - [place] & [place] 4 10:35:51 Notes:Some problems listed i n Documents: #[id number], #[id number] could not be added to this patient's chart. Please review these documents and add these problems to the patient's chart manually as needed. Problem Notes None recorded. Procedures Surgical History Date Name Laterality Status Provider Name and Address Organization Details Recorded Time 4 Excision and closure completed John Tai MD [address] [facility] [place] [facility],[address], [place], [address], [facility] & [place] 09/22/2023 11:22:57 4 Excision and closure completed John Tai MD [address] [place] [address],[address], [place], [address], [facility] & [place] 08/27/2023 12:07:23 operative procedure on shoulder completed Ashiaaudra Shore [facility] & [place] 12/14/2024 14:20:39 Imaging Results None recorded. Procedure Notes None recorded. Medical Equipment None Reported. Allergies Allergen ID Allergen Name Allergen Category Reaction Reaction Severity Criticality Documentation Date Start Date Code Code System Note Provider Name and Address Organization Details Recorded Time 056300 codeine phosphate medicatio n Not available Not available Not available 08/27/20232009 2672 [facility] [place] 4 10:35:50 546888 codeine sulfate medicatio n Not available Not available Not available 08/27/20232009 16060 RxNorm Corina padron [facility] & [place] 4 10:35:50 Medications Name Sig Start Date [...] blood by Pulse oximetry Body temperature Systolic And Diastolic Provider Name and Address Organization Details Last Updated DateTime 4 177.8 cm 25.5 kg/m2 58826 g 73 /min 96 % 96 % 98.4 [degF] 120/67 mm[Hg] Corina GARZA - [place] - [place] & [place] 4 10:41:13 Date Recorded Body height Body mass index (BMI) Body weight Respiratory rate Heart rate Oxygen saturation Oxygen saturation in Arterial blood by Pulse oximetry Body temperature Provider Name and Address Organization Details Last Updated DateTime 179.07 cm 24.1 kg/m2 25757.1 4 g 18 /min 88 /min 96 % 96 % 97.7 [degF] Ashia GARZA [facility] & [place] 14:15:27 Social History Question Answer Notes LastModified by Red [employer] Details LastModified Time Tobacco Smoking Status Current Every Day Smoker Ashia Shore null, [facility] [place] 12/14/2024 14:15:48 Do You Have An Advance Directive? No [email or web address] Information not available 12/14/2024 Are You Blind Or Do You Have Difficulty Seeing? Yes [email or web address] Information not available 12/14/2024 What Is Your Level Of Caffeine Consumption? Moderate [email or web address] Information not available 12/14/2024 What Type Of Diet Are You Following? REGULAR [email or web address] Information not available 12/14/2024 What Was The Date Of Your Most Recent Tobacco Screening? 08/27/2023 [email or web address] Information not available 12/14/2024 Are You Passively Exposed To Smoke? Yes Information not available 12/14/2024 How Much Tobacco Do You Smoke? 1 PPD [email or web address] Information not available 12/14/2024 How Many Years Have You Smoked Tobacco? 10 [email or web address] Information not available 12/14/2024 Sex: Male Functional Status Question Answer Note LastModified by [employer] Details LastModified Time Do you use any illicit or recreational drugs? No [email or web address] Information not available 12/14/2024 Do you or have you ever used any other forms of tobacco or nicotine? No [email or web address] Information not available 12/14/2024 What is your level of alcohol consumption? Occasional [email or web address] Information not available 12/14/2024 Do you or have you ever used smokeless tobacco? Never used smokeless tobacco [email or web address] Information not available 12/14/2024 What is your exercise level? Moderate [email or web address] Information not available 12/14/2024 Mental Status Question Answer Note LastModified by Organization D etails LastModified Time Do you feel stressed (tense, restless, nervous, or anxious, or unable to sleep at night)? [id number] [email or web address] Information not available 12/14/2024 Family History Relationship Description Onset Age of this Age Resolved Age Notes LastModified by Organization Details LastModified Time Father Rheumatoid arthritis pt. added direct ly (08/26) [email or web address] Not available 08/27/2023 10:29:46 Medical History Condition Response Vision or Eye Problems Y Arthritis Y Reflux/GERD Y Ear or Hearing Problems Y Back Problems Y Immunizations Vaccine Type Date Status Note Provider Nam e and Address Organization Details Recorded Time pneumococcal polysaccharide PPV23 1 [facility] & [place] 08/27/2023 10:35:51 Past Encounters Encounter ID Performer Location Encounter Start Date Encounter Closed Date Diagnosis/Indication Diagnosis SNOMED-CT Code Diagnosis ICD10 Code Diagnosis Note [id number] MD S[facility] [address] [place], [place] [address] 08/27/2023 09:55:33 08/27/2023 11:59:05 Hand wart 341708541 B07.8 Tangential excision. Skin lesion 20887143 L98 .9 punch biopsy. 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
== END 2024-12-28 23:59 | disposition home or self-care (01) ==
LOC: RAD 10:20
PROVIDERS: Visit Provider Physician Assistant
DX: R93.6 Abnormal findings on diagnostic imaging of limbs (principal); S32.10XA Unspecified fracture of sacrum, initial encounter for closed fracture
CPT/HCPCS: 72190